=== PATIENT | male | born 1975 | race Caucasian/White ===

== ENCOUNTER 2017-02-01 18:58 | Emergency (ER) | payer MEDICAID ==
[2017-02-01] MEDS ORDERED: Ondansetron 4 MG/2 ML SDV IVPUSH ONE (19:57)
[2017-02-01] MEDS ORDERED: HYDROmorphone 1 MG/ML Syringe IVPUSH ONE ×2 (19:57→21:37)
[2017-02-01] MEDS ORDERED: Lactated Ringers 1,000 ML IV SCH (20:00)
[2017-02-01] MEDS ORDERED: LORazepam 2 MG/ML MDV IVPUSH ONE (21:37)
--- NOTE | 2017-02-01 21:48 | EDM.PDOC ---
ED HPI GENERAL MEDICAL PROBLEM - General Chief Complaint: Abdominal Pain Stated Complaint: [facility] Time Seen by Provider: 02/01/17 19:42 Source of Information: Reports: Patient, Family (S.O and neighbor) History Limitations: Reports: No limitations - History of Present Illness INITIAL COMMENTS - FREE TEXT/NARRATIVE: Abdominal pain: This is a 41-year-old male presents emergency room via EMS. He has a complex medical history relating to acute and chronic abdominal pain. which became acute at 4 PM today after eating chicken. He reports the abdomen is very tender and crampy, having vomiting and dry heaves. Reports last bowel movement last night. he does have a feeding tube in place which he has not used for one week, reports eating enough food. Upon review of chart, it is noted he has a 5.8 pound weight loss since October 2016. His appearance is very thin and bony. 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) (He has an extensive med list) Left Lower Abdomen Pain Score (Numeric/FACES): 9 - Related Data Allergies Allergy/AdvReac Type Severity Reaction Status Date / Time adhesive tape Allergy Rash Verified 02/01/17 19:20 Home Meds: Home Meds Albuterol [Ventolin HFA] 2 puff PO Q4HR PRN 04/07/16 [History] Acetaminophen [Tylenol] 650 mg PO Q6H PRN #1 bottle 04/19/16 [Rx] Ondansetron [Zofran ODT] 4 mg PO Q6H PRN #30 tab.dis 04/19/16 [Rx] Vitamin B Complex [B Complex] 1 tab PO DAILY 05/13/16 [History] Omeprazole 40 mg PO BID 06/12/16 [History] Tamsulosin [Flomax] 0.4 mg PO BEDTIME 06/12/16 [History] Cyanocobalamin (Vitamin B12) [Vitamin B12] 1,000 mcg SL DAILY 09/07/16 [History] Diclofenac Potassium [Cataflam] 50 mg PO TID 09/07/16 [History] traMADol [Ultram] 50 mg PO Q6H PRN 09/07/16 [History] Multivitamins with Iron [Chewable-Loki with Iron] 1 each PO DAILY 11/07/16 [ History] Acarbose 50 mg PO TID 11/08/16 [History] Polyethylene Glycol 3350 [MiraLAX] 17 gm PO DAILY 11/08/16 [History] Docusate Sodium [Colace 50 MG/5 ML Liquid] 100 mg PEGTUBE BID 30 Days 11/10/16 [ Rx] Hyoscyamine [Levsin] 0.125 mg PO Q6HR PRN 11/17/16 [History] LORazepam 1 mg GTUBE ASDIRECTED 11/17/16 [History] Nicotine Polacrilex [Nicotine Gum] 4 mg PO ASDIRECTED PRN 11/17/16 [History] oxyCODONE HCl/Acetaminophen [oxyCODONE-Acetaminophen 5-325] 1 tab PO Q6H PRN [History] Amino Acids/Protein Hydrolys [Pro-Stat AWC] 15 ml PO BID 11/18/16 [History] Bacitracin [Bacitracin Oint] 1 applic TOP Q4H PRN 11/18/16 [History] Bisacodyl [Biscolax] 1 applic RC .Q2-4D PRN 11/18/16 [History] Calcium Citrate/Vitamin D3 [Calcium Citrate - Vit D3 Tab] 2 tab PO BID 11/18/16 [History] Diclofenac Sodium [Voltaren 1% Gel] 4 gr TOP BID 11/18/16 [History] Diphenoxylate HCl/Atropine [Lomotil] 1 tab PO Q6H PRN 11/18/16 [History] Magnesium Hydroxide [Milk of Magnesia] 1 oz PO Q48H PRN 11/18/16 [History] Nystatin [Nystatin Crm] 1 applic TOP TID PRN 11/18/16 [History] traMADol HCl [Tramadol HCl] 50 mg PO Q6H PRN 11/18/16 [History] traMADol HCl [Tramadol HCl] 100 mg PO Q6H PRN 11/18/16 [History] Acetaminophen/oxyCODONE [Percocet 325-5 MG] 1 - 2 tab PO Q4H PRN #50 tablet [Rx] Docusate Sodium [Colace] 100 mg PO BID cap 11/22/16 [Rx] Pantoprazole [ProTONIX] 40 mg PO Q24H tab.cr 11/22/16 [Rx] Past Medical History HEENT History: Reports: Impaired vision Other HEENT History: Dental caries; wears glasses Respiratory History: Reports: Asthma, Bronchitis, recurrent, Sleep apnea Gastrointestinal History: Reports: Chronic diarrhea, Gastritis, GERD, Hiatal hernia Genitourinary History: Reports: Renal calculus Musculoskeletal History: Reports: Arthritis, Back pain, chronic, Fracture, Fibromyalgia Neurological History: Reports: Brain injury, Concussion, Head trauma, Migraines , Vertigo Psychiatric History: Reports: ADHD, Anxiety, Depression, Mood swings, Panic attack, Suicide attempt, Suicidal ideation Endocrine/Metabolic History: Reports: Vitamin D deficiency, Other (see below) Other Endocrine/Metabolic History: hypoglycemic Hematologic History: Reports: B12 deficiency, Iron deficiency Dermatologic History: Reports: Other (see below) Other Dermatologic History: small sore on both legs - Infectious Disease History Infectious Disease History: Reports: Chicken pox - Past Surgical History Head Surgeries/Procedures: Reports: None HEENT Surgical History: Reports: Eye surgery Respiratory Surgical History: Reports: None GI Surgical History: Reports: Bariatric procedure, Esophageal dilatation, David fundoplication, Other (see below) Other GI Surgeries/Procedures: Repair of david recent. gastrectomy april 2016. G-tube placed September 2016 Abdomenal surgery in Oct or 2016 Male Surgical History: Reports: None Endocrine Surgical History: Reports: None Neurological Surgical History: Reports: None Musculoskeletal Surgical History: Reports: Knee replacement Other Musculoskeletal Surgeries/Procedures:: right knee replacement 07/2015 Dermatological Surgical History: Reports: None Social & Family History - Family History Respiratory: Reports: Asthma : Reports: Renal disease/insufficiency Musculoskeletal: Reports: Arthritis Neurological: Reports: Other (see below) Other Neurological Family History: MS Endocrine/Metabolic: Reports: Diabetes, type I Oncologic: Reports: Colon, Lung, Metastatic Other Oncologic Family History: Throat - Tobacco Use Smoking Status *Q: Current Every Day Smoker Years of Tobacco use: 15 Packs/Tins Daily: 0.5 Used Tobacco, but Quit: No Month Tobacco Last Used: 11/08 Second Hand Smoke Exposure: Yes - Caffeine Use Caffeine Use: Reports: Coffee Other Caffeine Use: 2 cups day - Alcohol Use Days Per Week of Alcohol Use: 0 - Recreational Drug Use Recreational Drug Use: No - Living Situation & Occupation Living situation: Reports: with significant other (Lives in [facility],, [address] Occupation: employed ED ROS GENERAL - Review of Systems Review Of Systems: See Below Constitutional: Reports: other (Appears to be in significant pain, active vomiting noted) HEENT: Reports: No symptoms Respiratory: Reports: No Symptoms Cardiovascular: Reports: No symptoms Endocrine: Reports: no symptoms GI/Abdominal: Reports: Abdominal pain, Decreased appetite, Nausea, Vomiting, Other (Feeding tube in place) : Reports: no symptoms Musculoskeletal: Reports: back pain Skin: Reports: no symptoms Neurological: Reports: No Symptoms Psychiatric: Reports: Agitation, Anxiety Hematologic/Lymphatic: Reports: no symptoms Immunologic: Reports: no symptoms ED EXAM, GENERAL - Physical Exam Exam: See Below Exam Limited By: No limitations General Appearance: alert, WD/WN, anxious, moderate distress, thin, cachetic Ears: normal external exam, normal canal, hearing grossly normal, normal TMs Nose: normal inspection, normal mucosa, no blood Throat/Mouth: Normal inspection, Normal lips, Normal teeth, Normal gums, Normal oropharynx, Normal voice, No airway compromise Head: atraumatic, normocephalic, other (Face and head very thin and bony appearance) Neck: normal inspection, supple, non-tender Respiratory/Chest: no respiratory distress, lungs clear, normal breath sounds Cardiovascular: regular rate, rhythm, no edema GI/Abdominal: abnormal bowel sounds: (Hypoactive), other (Feeding tube noted and clamped without secondary infection) (Male) Exam: Deferred Rectal (Males) Exam: Deferred Back Exam: full range of motion Extremities: normal inspection, normal range of motion, non-tender, normal capillary refill, no pedal edema Neurological: alert, normal cognition, no motor/sensory deficits Psychiatric: anxious Skin Exam: Warm, Dry, Intact, Normal color, No rash, Pallor Lymphatic: no adenopathy Course - Vital Signs Last Recorded V/S: Last Vital Signs Temp 37 C 02/01/17 19:19 Pulse 65 02/01/17 19:19 Resp 16 02/01/17 19:19 BP 132/89 02/01/17 19:19 Pulse Ox 97 02/01/17 19:19 - Orders/Labs/Meds Orders: Active Orders 24 hr Category Date Time Status Abdomen Pelvis wo Cont [CT] Stat Exams 02/01/17 19:55 Taken Lactated Ringers [Ringers, Lactated] 1,000 ml Med 02/01/17 20:00 Active IV ASDIRECTED Medication Orders Lactated Ringer's (Ringers, Lactated) 1,000 mls @ 300 mls/hr IV ASDIRECTED MATIAS Last Admin: 02/01/17 21:06 Dose: 300 mls/hr Labs: Laboratory Tests 02/01/17 02/01/17 02/01/17 Range/Units 20:26 20:26 20:26 WBC 9.1 (4.5-11.0) K/uL RBC 4.22 L (4.30-5.90) M/uL Hgb 12.2 (12.0-15.0) g/dL Hct 36.9 L (40.0-54.0) % MCV 87 (80-98) fL MCH 29 (27-31) pg MCHC 33 (32-36) % Plt Count 388 (150-400) K/uL Neut % (Auto) 74 H (36-66) % Lymph % (Auto) 21 L (24-44) % Steele % (Auto) 4 (2-6) % Eos % (Auto) 1 L (2-4) % Baso % (Auto) 0 (0-1) % Sodium 145 (140-148) mmol/L Potassium 3.9 (3.6-5.2) mmol/L Chloride 106 (100-108) mmol/L Carbon Dioxide 28 (21-32) mmol/L Anion Gap 10.8 (5.0-14.0) mmol/L BUN 13 D (7-18) mg/dL Creatinine 0.8 (0.8-1.3) mg/dL Est Cr Clr Drug Dosing 84.26 mL/min Estimated GFR (MDRD) > 60 (>60) Glucose 143 H (74-106) mg/dL Lactic Acid 1.1 (0.4-2.0) mmol/L Calcium 8.6 (8.5-10.1) mg/dL Total Bilirubin 0.3 (0.2-1.0) mg/dL AST 18 (15-37) U/L ALT 24 (12-78) U/L Alkaline Phosphatase 85 D (46-116) U/L Total Protein 7.1 (6.4-8.2) g/dL Albumin 3.0 L (3.4-5.0) g/dL Globulin 4.1 H (2.3-3.5) g/dL Albumin/Globulin Ratio 0.7 L (1.2-2.2) Amylase 48 (25-115) U/L Lipase 73 (73-393) U/L Meds: Medications Generic Name Dose Route Start Last Admin Trade Name Freq PRN Reason Stop Dose Admin Lactated Ringer's 1,000 mls @ 300 mls/hr 02/01/17 20:00 02/01/17 21:06 Ringers, Lactated IV 300 mls/hr ASDIRECTED MATIAS Administration Discontinued Medications Generic Name Dose Route Start Last Admin Trade Name Freq PRN Reason Stop Dose Admin Hydromorphone HCl 1 mg 02/01/17 19:57 02/01/17 20:06 Dilaudid IVPUSH 02/01/17 19:58 1 mg ONETIME ONE Administration Hydromorphone HCl 1 mg 02/01/17 21:37 02/01/17 21:49 Dilaudid IVPUSH 02/01/17 21:38 1 mg ONETIME ONE Administration Lorazepam 1 mg 02/01/17 21:37 02/01/17 21:46 Ativan IVPUSH 02/01/17 21:38 1 mg ONETIME ONE Administration Ondansetron HCl 4 mg 02/01/17 19:57 02/01/17 20:05 Zofran IVPUSH 02/01/17 19:58 4 mg ONETIME ONE Administration - Re-Assessments/Exams Free Text/Narrative Re-Assessment/Exam: 02/01/17 21:52 Treated with IV lactated Ringer's, IV Zofran 4 mg, IV Dilaudid 1 mg repeated x2 , IV Ativan [address] without contrast no acute conditions noted Review of results with patient and his S. O. Consulted with Dr. Neftali Silvestre. He will be seen tomorrow in clinic for further evaluation. Patient declines any admission to hospital. Departure - Departure Time of Disposition: 22:54 Disposition: Home, Self-Care 01 Condition: fair Clinical Impression: Abdominal pain Qualifiers: Abdominal location: generalized Qualified Code(s): R10.84 - Generalized abdominal pain Instructions: Abdominal Pain, Adult, [id number] Referrals: Gideon Fam PA [Primary Care Provider] - Forms: ED Department Discharge Care Plan Goals: Abdominal pain with nausea vomiting -Continue medications as prescribed -Followup with surgery clinic tomorrow. -Return to ER if has worsening pain or symptoms or has any concerns. - Problem List & Annotations (1) Abdominal pain SNOMED Code(s): 03231563 Code(s): R10.9 - UNSPECIFIED ABDOMINAL PAIN Status: Acute Priority: High Current Visit: Yes Qualifiers: Abdominal location: generalized Qualified Code(s): R10.84 - Generalized abdominal pain - Problem List Review Problem List Initiated/Reviewed/Updated: Yes - My Orders Last 24 Hours: My Active Orders 02/01/17 19:55 Abdomen Pelvis wo Cont [CT] Stat 02/01/17 20:00 Lactated Ringers [Ringers, Lactated] 1,000 ml IV ASDIRECTED - Assessment/Plan Last 24 Hours: My Active Orders 02/01/17 19:55 Abdomen Pelvis wo Cont [CT] Stat 02/01/17 20:00 Lactated Ringers [Ringers, Lactated] 1,000 ml IV ASDIRECTED Plan: Abdominal pain with nausea vomiting -Continue medications as prescribed -Followup with surgery clinic tomorrow. -Return to ER if has worsening pain or symptoms or has any concerns
[2017-02-01 23:19] VITALS: BP 122/86
== END 2017-02-01 22:40 | disposition home or self-care (01) ==
LOC: JP.ED 18:58
DX: R10.84 Generalized abdominal pain (principal); F17.210 Nicotine dependence, cigarettes, uncomplicated; K21.9 Gastro-esophageal reflux disease without esophagitis; G89.29 Other chronic pain; M54.9 Dorsalgia, unspecified; E50.9 Vitamin A deficiency, unspecified; Z96.659 Presence of unspecified artificial knee joint; Z98.890 Other specified postprocedural states; J45.909 Unspecified asthma, uncomplicated; Z79.899 Other long term (current) drug therapy; Z91.048 Other nonmedicinal substance allergy status
CPT/HCPCS: 36415; 74176; 80053; 82150; 83605; 83690; 85025; 96361; 96374; 96375; 96376; 99284; J1170; J2060; J2405; J7120

== ENCOUNTER 2017-02-02 15:59 | Inpatient (IN) | payer MEDICAID ==
[2017-02-02] MEDS ORDERED: Ondansetron 4 MG/2 ML SDV IVPUSH PRN (17:20)
[2017-02-02] MEDS ORDERED: Naloxone 0.4 MG/ML SDV IV PRN (17:24)
[2017-02-02] MEDS ORDERED: HYDROmorphone/Normal Saline 15 MG/30 ML PCA IV PRN (17:30)
[2017-02-02] MEDS ORDERED: Pneumococcal Polyvalent-23 Vaccine 0.5 ML SDV IM ONE (17:43)
[2017-02-02] MEDS: Metoclopramide 10 MG/2 ML SDV IV SCH ×2 (18:51→23:52)
[2017-02-02] MEDS: Pantoprazole 40 MG Vial IVPUSH SCH (21:24)
[2017-02-02] MEDS ORDERED: Albuterol 8 GM Inhaler INH PRN (21:59)
[2017-02-02] MEDS ORDERED: Acetaminophen Soln 650 MG/20.3 ML UD Cup PO PRN (21:59)
[2017-02-02] MEDS ORDERED: LORazepam 1 MG Tab GTUBE SCH (22:00)
[2017-02-02] MEDS ORDERED: LORazepam 0.5 MG Tab GTUBE PRN (22:14)
[2017-02-03] MEDS: Dextrose 5%-Lactated Ringers 1,000 ML IV SCH ×2 (01:45→19:06)
[2017-02-03] MEDS: Metoclopramide 10 MG/2 ML SDV IV SCH ×4 (05:45→23:53)
--- NOTE | 2017-02-03 08:06 | PCM.HP ---
H&P History of Present Illness - General Date of Service: 02/02/17 Admit Problem/Dx: Admission Diagnosis/Problem Admission Diagnosis/Problem Small bowel obstruction Source of Information: Patient History Limitations: Reports: No limitations - History of Present Illness Initial Comments - Free Text/Narative: Pito states he was fine all day 02/01/17 until he ate chicken fingers his girlfriend made at home. He states he developed severe left mid abdominal pain that was associated with nausea. He went to the ED and had a CT Scan without contrast which was negative. He went to see Dr. Faria in the clinic 02/02/17 who transferred him down to the surgery department. Pito was seen in the surgery dept but he was dry heaving and couldn't sit up in the wheelchair reporting his pain a 10/10. He reported pain in his mid abdomen. Pito was taken to the ED Dept at [facility] and an Cristhian RN called stating that there wasn't anything they could do for him and refused to see him. Pito was directly admitted. Duration of Symptoms: Reports: Day(s): (2) Location: Reports: abdomen Quality: Reports: Pressure, Sharp, Stabbing Improves with: Reports: Medication Worsens with: Reports: None Context: Reports: sick contact Associated Symptoms: Reports: denies other symptoms Upper Abdomen Pain Score (Numeric/FACES): 10 - Related Data Allergies/Adverse Reactions: Allergies Allergy/AdvReac Type Severity Reaction Status Date / Time adhesive tape Allergy Rash Verified 02/01/17 19:20 Home Medications: Home Meds Albuterol [Ventolin HFA] 2 puff PO Q4HR PRN 04/07/16 [History] Acetaminophen [Tylenol] 650 mg PO Q6H PRN #1 bottle 04/19/16 [Rx] Ondansetron [Zofran ODT] 4 mg PO Q6H PRN #30 tab.dis 04/19/16 [Rx] Vitamin B Complex [B Complex] 1 tab PO DAILY 05/13/16 [History] Omeprazole 40 mg PO BID 06/12/16 [History] Tamsulosin [Flomax] 0.4 mg PO BEDTIME 06/12/16 [History] Cyanocobalamin (Vitamin B12) [Vitamin B12] 1,000 mcg SL DAILY 09/07/16 [History] Diclofenac Potassium [Cataflam] 50 mg PO TID 09/07/16 [History] traMADol [Ultram] 50 mg PO Q6H PRN 09/07/16 [History] Multivitamins with Iron [Chewable-Loki with Iron] 1 each PO DAILY 11/07/16 [ History] Acarbose 50 mg PO TID 11/08/16 [History] Polyethylene Glycol 3350 [MiraLAX] 17 gm PO DAILY 11/08/16 [History] Docusate Sodium [Colace 50 MG/5 ML Liquid] 100 mg PEGTUBE BID 30 Days 11/10/16 [ Rx] Hyoscyamine [Levsin] 0.125 mg PO Q6HR PRN 11/17/16 [History] LORazepam 1 mg GTUBE ASDIRECTED 11/17/16 [History] Nicotine Polacrilex [Nicotine Gum] 4 mg PO ASDIRECTED PRN 11/17/16 [History] oxyCODONE HCl/Acetaminophen [oxyCODONE-Acetaminophen 5-325] 1 tab PO Q6H PRN [History] Amino Acids/Protein Hydrolys [Pro-Stat AWC] 15 ml PO BID 11/18/16 [History] Bacitracin [Bacitracin Oint] 1 applic TOP Q4H PRN 11/18/16 [History] Bisacodyl [Biscolax] 1 applic RC .Q2-4D PRN 11/18/16 [History] Calcium Citrate/Vitamin D3 [Calcium Citrate - Vit D3 Tab] 2 tab PO BID 11/18/16 [History] Diclofenac Sodium [Voltaren 1% Gel] 4 gr TOP BID 11/18/16 [History] Diphenoxylate HCl/Atropine [Lomotil] 1 tab PO Q6H PRN 11/18/16 [History] Magnesium Hydroxide [Milk of Magnesia] 1 oz PO Q48H PRN 11/18/16 [History] Nystatin [Nystatin Crm] 1 applic TOP TID PRN 11/18/16 [History] traMADol HCl [Tramadol HCl] 50 mg PO Q6H PRN 11/18/16 [History] traMADol HCl [Tramadol HCl] 100 mg PO Q6H PRN 11/18/16 [History] Acetaminophen/oxyCODONE [Percocet 325-5 MG] 1 - 2 tab PO Q4H PRN #50 tablet [Rx] Docusate Sodium [Colace] 100 mg PO BID cap 11/22/16 [Rx] Pantoprazole [ProTONIX] 40 mg PO Q24H tab.cr 11/22/16 [Rx] Past Medical History HEENT History: Reports: Impaired vision Other HEENT History: Dental caries; wears glasses Respiratory History: Reports: Asthma, Bronchitis, recurrent, Sleep apnea Gastrointestinal History: Reports: Chronic diarrhea, Gastritis, GERD, Hiatal hernia Genitourinary History: Reports: Renal calculus Musculoskeletal History: Reports: Arthritis, Back pain, chronic, Fracture, Fibromyalgia Neurological History: Reports: Brain injury, Concussion, Head trauma, Migraines , Vertigo Psychiatric History: Reports: ADHD, Anxiety, Depression, Mood swings, Panic attack, Suicide attempt, Suicidal ideation Endocrine/Metabolic History: Reports: Vitamin D deficiency, Other (see below) Other Endocrine/Metabolic History: hypoglycemic Hematologic History: Reports: B12 deficiency, Iron deficiency Dermatologic History: Reports: Other (see below) Other Dermatologic History: small sore on both legs - Infectious Disease History Infectious Disease History: Reports: Shingles - Past Surgical History Head Surgeries/Procedures: Reports: None HEENT Surgical History: Reports: Eye surgery Respiratory Surgical History: Reports: None GI Surgical History: Reports: Bariatric procedure, Esophageal dilatation, David fundoplication, Other (see below) Other GI Surgeries/Procedures: Repair of david recent. gastrectomy april 2016. G-tube placed September 2016 Abdomenal surgery in Oct or 2016 Male Surgical History: Reports: None Endocrine Surgical History: Reports: None Neurological Surgical History: Reports: None Musculoskeletal Surgical History: Reports: Knee replacement Other Musculoskeletal Surgeries/Procedures:: right knee replacement 07/2015 Dermatological Surgical History: Reports: None Social & Family History - Family History Respiratory: Reports: Asthma : Reports: Renal disease/insufficiency Musculoskeletal: Reports: Arthritis Neurological: Reports: Other (see below) Other Neurological Family History: MS Endocrine/Metabolic: Reports: Diabetes, type I Oncologic: Reports: Colon, Lung, Metastatic Other Oncologic Family History: Throat - Tobacco Use Smoking Status *Q: Current Some Day Smoker Years of Tobacco use: 25 Packs/Tins Daily: 0.5 Used Tobacco, but Quit: No Month Tobacco Last Used: 11/08 Second Hand Smoke Exposure: Yes - Caffeine Use Caffeine Use: Reports: Coffee Other Caffeine Use: 2 cups day - Alcohol Use Days Per Week of Alcohol Use: 0 - Recreational Drug Use Recreational Drug Use: No - Living Situation & Occupation Living situation: Reports: with significant other (Lives in [facility],, [facility] Occupation: employed H&P Review of Systems - Review of Systems: Review Of Systems: See Below General: Reports: weakness, fatigue, diaphoresis, decreased appetite HEENT: Reports: no symptoms Pulmonary: Reports: No Symptoms Cardiovascular: Reports: no symptoms Gastrointestinal: Reports: Abdominal pain (Gastrostomy tube in place\), Nausea Genitourinary: Reports: no symptoms Musculoskeletal: Reports: no symptoms Skin: Reports: no symptoms Psychiatric: Reports: anxiety Neurological: Reports: No Symptoms Hematologic/Lymphatic: Reports: no symptoms Immunologic: Reports: no symptoms Exam - Exam Exam: See Below - Vital Signs Vital Signs: Last Vital Signs Temp 96.4 F 02/03/17 07:00 Pulse 78 02/03/17 07:00 Resp 18 02/03/17 07:00 BP 79/52 L 02/03/17 07:00 Pulse Ox 93 L 02/03/17 07:00 Weight: 103 lb 1.6 oz - Exam General: severe distress HEENT: PERRLA Neck: supple, trachea midline Lungs: Clear to auscultation, Normal respiratory effort Cardiovascular: regular rate, regular rhythm Abdomen: tenderness (in left mid quadrant) (Male) Exam: Deferred Rectal (Males) Exam: Deferred Back Exam: normal inspection, full range of motion Extremities: normal inspection Skin: warm Neurological: cranial nerves intact, reflexes equal bilateral Neuro Extensive - Mental Status: other (in acute pain) Neuro Extensive - Motor, Sensory, Reflexes: CN II-XII intact, normal gait Psychiatric: anxious - Patient Data Lab Results last 24 hrs: Laboratory Results - last 24 hr 02/02/17 02/02/17 02/02/17 Range/Units 17:16 17:16 17:16 WBC 9.4 (4.5-11.0) K/uL RBC 5.10 (4.30-5.90) M/uL Hgb 14.6 D (12.0-15.0) g/dL Hct 43.6 (40.0-54.0) % MCV 86 (80-98) fL MCH 29 (27-31) pg MCHC 34 (32-36) % Plt Count 438 H (150-400) K/uL Sodium 144 (140-148) mmol/L Potassium 4.0 (3.6-5.2) mmol/L Chloride 105 (100-108) mmol/L Carbon Dioxide 28 (21-32) mmol/L Anion Gap 11.4 (5.0-14.0) mmol/L BUN 13 (7-18) mg/dL Creatinine 0.7 L (0.8-1.3) mg/dL Est Cr Clr Drug Dosing TNP Estimated GFR (MDRD) > 60 (>60) Glucose 113 H (74-106) mg/dL Calcium 9.1 (8.5-10.1) mg/dL Phosphorus 3.6 (2.5-4.9) mg/dL Magnesium 1.7 L (1.8-2.4) mg/dL Total Bilirubin 0.6 D (0.2-1.0) mg/dL AST 14 L (15-37) U/L ALT 21 (12-78) U/L Alkaline Phosphatase 88 (46-116) U/L Total Protein 7.6 (6.4-8.2) g/dL Albumin 3.0 L (3.4-5.0) g/dL Globulin 4.6 H (2.3-3.5) g/dL Albumin/Globulin Ratio 0.7 L (1.2-2.2) Result Diagrams: 02/02/17 17:16 02/02/17 17:16 *Q Meaningful Use (ADM) - VTE *Q VTE Criteria *Q: - Stroke *Q Stroke Criteria *Q: - AMI *Q AMI Criteria *Q: Problem List Initiated/Reviewed/Updated: Yes Orders Last 24hrs: Active Orders 24 hr Category Date Time Status Admission Status [Patient Status] [ADT] Routine ADT 02/02/17 17:00 Active Feeding Tube Managment [Enteral Feedings] [RC] Click to Care 02/02/17 17:33 Active Edit Intake and Output [RC] QSHIFT Care 02/02/17 17:14 Active Up ad Patrizia [RC] ASDIRECTED Care 02/02/17 17:14 Active Vital Signs [RC] Q4H Care 02/02/17 17:14 Active Clear Liquid Diet [DIET] Diet 02/03/17 Breakfast Active Abdomen 2V AP Flat Upright [CR] Routine Exams 02/02/17 17:18 Taken Abdomen 2V AP Flat Upright [CR] Routine Exams 02/03/17 04:00 Taken Acarbose [Precose] Med 02/03/17 09:00 Active 50 mg PO TID Acetaminophen [Tylenol] Med 02/02/17 21:59 Active 650 mg PO Q6H PRN Albuterol [Ventolin HFA] Med 02/02/17 21:59 Active 0 gm INH Q4H PRN Dextrose 5%-Lactated Ringers 1,000 ml Med 02/02/17 17:30 Active IV ASDIRECTED Diclofenac Potassium [Cataflam] Med 02/03/17 09:00 Active 50 mg PO TID HYDROmorphone/Normal Saline [Dilaudid [employer] 15 MG in NS Med 02/02/17 18:06 Active 30 ML] 15 mg IV ASDIRECTED PRN LORazepam [Ativan] Med 02/02/17 22:14 Active 1 mg GTUBE Q4H PRN MVI, Adult with Vitamin K [Infuvite Adult] 10 ml Med 02/03/17 09:30 Active Thiamine [Vitamin B-1] 100 mg Magnesium Sulfate [Magnesium Sulfate 50%] 2 gm Folic Acid 1 mg Lactated Ringers [Ringers, Lactated] 1,000 ml IV ONETIME Magnesium Sulfate/Water [Magnesium Sulfate 2 GM in Med 02/03/17 06:30 Active Water 50 ML] 2 gm Premix Bag 1 bag IV Q6H Metoclopramide [Reglan] Med 02/03/17 12:00 Active 10 mg IV Q6H Naloxone [Narcan] Med 02/02/17 17:24 Active 0.1 mg IV ASDIRECTED PRN Ondansetron [Zofran] Med 02/02/17 17:20 Active 4 mg IVPUSH Q4H PRN Pantoprazole [ProTONIX IV] Med 02/02/17 21:00 Active 40 mg IVPUSH BEDTIME Tamsulosin [Flomax] Med 02/03/17 21:00 Active 0.4 mg PO BEDTIME SCD [Sequential Compression Device] [OM.PC] Routine Oth 02/02/17 17:15 Ordered Medication Orders Acarbose (Precose) 50 mg PO TID MATIAS Acetaminophen (Tylenol) 650 mg PO Q6H PRN PRN Reason: pain or fever Albuterol (Ventolin Hfa) 0 gm INH Q4H PRN PRN Reason: Shortness of Breath Diclofenac Potassium (Cataflam) 50 mg PO TID [facility] Hydromorphone HCl (Dilaudid Overhead Worker 15 Mg In Ns 30 Ml) 15 mg IV ASDIRECTED PRN; Protocol PRN Reason: PAIN Dextrose/Lactated Ringer's (Dextrose 5%-Lactated Ringers) 1,000 mls @ 125 mls/ hr IV ASDIRECTED [facility] Last Admin: 02/03/17 01:45 Dose: 125 mls/hr Magnesium Sulfate 2 gm/ Premix 50 mls @ 25 mls/hr IV Q6H [facility] Stop: 02/06/17 02:29 Multivitamins/Minerals 10 ml/Thiamine HCl 100 mg/ Magnesium Sulfate 2 gm/ Folic Acid 1 mg / Lactated Ringer's 1,015.2 mls @ 200 mls/hr IV ONETIME ONE Stop: 02/03/17 14:34 Lorazepam (Ativan) 1 mg GTUBE Q4H PRN PRN Reason: Anxiety Metoclopramide HCl (Reglan) 10 mg IV Q6H MATIAS Naloxone HCl (Narcan) 0.1 mg IV ASDIRECTED PRN PRN Reason: decreased respiratory rate Ondansetron HCl (Zofran) 4 mg IVPUSH Q4H PRN PRN Reason: Nausea/Vomiting Last Admin: 02/02/17 17:36 Dose: 4 mg Pantoprazole Sodium (Protonix Iv) 40 mg IVPUSH BEDTIME [facility] Last Admin: 02/02/17 21:24 Dose: 40 mg Tamsulosin HCl (Flomax) 0.4 mg PO BEDTIME [facility] Assessment/Plan Comment:: Abdominal Pain Partial Small Bowel Pain Plan: Admit to [facility] See copy of orders Admit to Inpatient: Plan to be hospitalized 2 nights and 3 days Laurie Slaughter
[2017-02-03] MEDS ORDERED: Iohexol 300 MG/ML 30 ML Bottle PO ONE (08:07)
[2017-02-03] MEDS ORDERED: Iopamidol 612 MG/ML 100 ML Bottle IV PRN (08:36)
[2017-02-03] MEDS ORDERED: Sodium Chloride 0.9% 10 ML Syringe FLUSH PRN (08:36)
[2017-02-03] MEDS ORDERED: Sodium Chloride 0.9% 10 ML SDV FLUSH ONE (08:36)
[2017-02-03] MEDS: Magnesium Sulfate/Water 2 GM in Premix Bag 1 BAG IV SCH ×4 (08:41→23:57)
[2017-02-03] MEDS ORDERED: Sodium Chloride 0.9% 100 ML IV SCH (08:45)
--- NOTE | 2017-02-03 08:59 | PN ---
DATE OF SERVICE: 02/03/2017 SUBJECTIVE: Pito is a 41-year-old male who was admitted yesterday with severe abdominal pain. This morning, he reports his pain is better. 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 He has been on clear liquids only. He reports the pain is better, it was in the left midquadrant. No other associated signs and symptoms with the exception of nausea. OBJECTIVE: GENERAL: Pito Segura is a 41-year-old male. VITAL SIGNS: TPR is 96.4, 78, 18, blood pressure 79/52. HEENT: Negative. NECK: Supple. HEART: Regular rate and rhythm. LUNGS: Clear. ABDOMEN: Midline incision looks good. There is a small hernia noted in the incision, nonacute. Gastrostomy tube is in place. EXTREMITIES: Without peripheral edema. ASSESSMENT: Severe abdominal pain, nausea, gastrostomy tube feeding, status post partial gastrectomy, gastrostomy tube for abnormal weight loss, hypoglycemia after gastrointestinal surgery, malnutrition, vitamin B and D deficiency. PLAN: Check ferritin and B12 on blood already drawn. A CT of abdomen and pelvis with IV and oral contrast and use contrast in the gastrostomy tube, 100 mL, 1 L of LR with MultiVites. To call Neftali Silvestre MD, after the CT results are completed. Laurie Funes PA-C /[id number]
[2017-02-03] MEDS ORDERED: Iohexol 647 MG/ML 10 ML SDV ONE (09:26)
[2017-02-03] MEDS ORDERED: MVI, Adult with Vitamin K 10 ML, Thiamine 100 MG, Magnesium Sulfate 2 GM, Folic Acid 1 ... IV ONE ×5 (09:30)
--- NOTE | 2017-02-03 09:37 | CR ---
Abdomen 2V AP Flat Upright INDICATION: abdominal pain, ? SBO FINDINGS: Postoperative changes in the upper abdomen. Gastrostomy tube in place. Nonspecific bowel g as pattern. No evidence for small bowel obstruction or free air.
--- NOTE | 2017-02-03 09:38 | CR ---
Abdomen 2V AP Flat Upright INDICATION: abdominal pain FINDINGS: Comparison 02/02/2017. Postoperative changes in the upper abdomen. Gastrostomy tube in plac e. Nonspecific bowel gas pattern. No evidence for small bowel obstruction or free air.
--- NOTE | 2017-02-03 12:19 | CT ---
Abdomen Pelvis w Cont Total DLP 300 mGycm. INDICATION: small bowel obstruction COMPARISON: CT 02/01/2017 and 11/07/2016. FINDINGS: Swirling of the mesentery in the left upper abdomen best visualized on axial images 46-55 with prominence of the mesenteric vessels. Mild increase in free fluid in the right paracolic gutter and pelvis. Findings are suspicious for internal hernia. Postoperative changes Gala-en-Y gastric by pass and cholecystectomy. Bilateral renal cysts. Nephrolithiasis. Moderate bladder distention. Gastr ostomy tube in place. Exam otherwise unremarkable. IMPRESSION: Internal hernia in the left upper quadrant. Findings discussed with Dr. Silvestre in person at 12:15 PM on 02/03/2017.
[2017-02-03] MEDS: HYDROmorphone/Normal Saline 15 MG/30 ML PCA IV PRN (20:14)
[2017-02-03] MEDS: Pantoprazole 40 MG Vial IVPUSH SCH (21:00)
[2017-02-03] MEDS: Tamsulosin 0.4 MG Cap.ER PO SCH (21:00)
[2017-02-04] MEDS: Dextrose 5%-Lactated Ringers 1,000 ML IV SCH ×3 (04:30→19:36)
[2017-02-04] MEDS: Magnesium Sulfate/Water 2 GM in Premix Bag 1 BAG IV SCH ×4 (05:49→23:40)
[2017-02-04] MEDS: Metoclopramide 10 MG/2 ML SDV IV SCH ×2 (05:49→14:04)
[2017-02-04] MEDS ORDERED: Meropenem 500 MG SDV ONE (06:58)
[2017-02-04] MEDS ORDERED: Neostigmine Methylsulfate 1 MG/ML 5 ML Syringe ONE (07:25)
[2017-02-04] MEDS ORDERED: Rocuronium 50 MG/5 ML Vial ONE (07:25)
[2017-02-04] MEDS ORDERED: Succinylcholine/Normal Saline 200 MG/10 ML Syringe ONE (07:25)
[2017-02-04] MEDS ORDERED: Ondansetron 4 MG/2 ML SDV ONE (07:25)
[2017-02-04] MEDS ORDERED: fentaNYL 250 MCG/5 ML SDV ONE (07:25)
[2017-02-04] MEDS ORDERED: Propofol 200 MG/20 ML SDV ONE (07:25)
[2017-02-04] MEDS ORDERED: Dexamethasone 4 MG/ML SDV ONE (07:25)
[2017-02-04] MEDS: fentaNYL 25 MCG/HR Transdermal Patch TRDERM SCH (09:31)
[2017-02-04] MEDS ORDERED: cefOXitin 2 GM in Sodium Chloride 0.9% 50 ML IV ONE (10:00)
[2017-02-04] MEDS ORDERED: Lactated Ringers 1,000 ML ONE (11:05)
[2017-02-04] MEDS ORDERED: Sugammadex Sodium 200 MG/2 ML VIAL ONE (11:40)
[2017-02-04] MEDS ORDERED: Meperidine PF 100 MG/ML Syringe IM ONE (11:56)
[2017-02-04] MEDS ORDERED: hydrOXYzine HCl 50 MG/ML SDV IM ONE (12:15)
[2017-02-04] MEDS ORDERED: hydrOXYzine HCl 50 MG/ML SDV IM PRN (12:52)
[2017-02-04] MEDS ORDERED: hydrOXYzine HCl 25 MG Tab PO PRN (12:53)
[2017-02-04] MEDS ORDERED: Cyclobenzaprine 10 MG Tab PO PRN (12:53)
[2017-02-04] MEDS: cefOXitin 2 GM in Sodium Chloride 0.9% 50 ML IV SCH ×2 (16:16→22:07)
[2017-02-04] MEDS: Tamsulosin 0.4 MG Cap.ER PO SCH (20:25)
[2017-02-04] MEDS: Pantoprazole 40 MG Vial IVPUSH SCH (20:25)
[2017-02-05] MEDS: cefOXitin 2 GM in Sodium Chloride 0.9% 50 ML IV SCH (03:25)
[2017-02-05] MEDS: Magnesium Sulfate/Water 2 GM in Premix Bag 1 BAG IV SCH ×4 (05:32→22:50)
[2017-02-05] MEDS: Dextrose 5%-Lactated Ringers 1,000 ML IV SCH (07:23)
[2017-02-05] MEDS: FENTANYL PATCH CHECK TOP SCH (08:59)
[2017-02-05] MEDS ORDERED: Cyanocobalamin (Vitamin B12) 1,000 MCG/ML SDV IM ONE (09:00)
[2017-02-05] MEDS: HYDROmorphone/Normal Saline 15 MG/30 ML PCA IV PRN (11:27)
[2017-02-05] MEDS: Pantoprazole 40 MG Vial IVPUSH SCH (20:37)
[2017-02-05] MEDS: Tamsulosin 0.4 MG Cap.ER PO SCH (20:37)
[2017-02-05] MEDS ORDERED: Lidocaine 2% Jelly 10 ML Urojet MUCMEM ONE (22:35)
[2017-02-06] MEDS: Dextrose 5%-Lactated Ringers 1,000 ML IV SCH ×2 (00:33→11:37)
[2017-02-06] MEDS: Magnesium Sulfate/Water 2 GM in Premix Bag 1 BAG IV SCH ×4 (04:23→23:10)
[2017-02-06] MEDS ORDERED: Meropenem 500 MG SDV ONE (06:47)
[2017-02-06] MEDS ORDERED: Bupivacaine 0.5% 50 ML MDV ONE (06:47)
[2017-02-06] MEDS ORDERED: Lidocaine 1% with EPINEPHrine 1:100,000 50 ML MDV ONE (06:47)
[2017-02-06] MEDS ORDERED: Propofol 200 MG/20 ML SDV ONE (08:00)
[2017-02-06] MEDS ORDERED: fentaNYL 100 MCG/2 ML SDV ONE (08:00)
--- NOTE | 2017-02-06 08:24 | PN ---
DATE OF SERVICE: 02/06/2017 SUBJECTIVE: Pito is postop day 2 following an exploratory laparotomy. He is n.p.o. for a delayed primary closure today. His vital signs have been stable. He has been afebrile, up, ambulating, and pain has been controlled. REVIEW OF SYSTEMS: Remainder of review of systems negative for any pertinent positives and negatives. OBJECTIVE: GENERAL: Pito Segura is a 41-year-old male. He is alert and orientated, resting comfortably in bed. VITAL SIGNS: TPR is 98.2, 83, 15, blood pressure 103/60. HEENT: Negative. NECK: Supple. HEART: Regular rate and rhythm. LUNGS: Clear. ABDOMEN: Dressings dry and intact. Abdominal binder is on. EXTREMITIES: SCDs are on, and there is no peripheral edema. ASSESSMENT: 1. Exploratory laparotomy with resolution of small bowel volvulus and chronic mesenteric defect, small bowel stricturoplasty, and repair of incarcerated hernia and abnormal mobile cecum. Date of surgery is 02/04/2017. 2. Postop urinary retention requiring reinsertion of Chauhan catheter. PLAN: Orders to be written after delayed primary closure, and his Chauhan catheter will remain in until further orders, and he will continue to have a 24-hour gastrostomy tube feedings. Laurie Funes PA-C /[id number]
[2017-02-06] MEDS: FENTANYL PATCH CHECK TOP SCH (10:09)
[2017-02-06] MEDS: Acetaminophen/oxyCODONE 325-5 MG Tab PO PRN ×2 (11:47→19:48)
--- NOTE | 2017-02-06 12:22 | PN ---
DATE OF SERVICE: 02/05/2017 The patient has been afebrile with stable vital signs. He tolerated the tube feedings overnight, and we will continue these for a 24-hour period, as we are playing some catch-up nutritionally. Otherwise, urine output has been good. We will back down the IV rate and will plan to proceed with starting with some diet today. I think we will go to, more or less, a regular diet, as we have not done anything with his more proximal area around the gastrojejunostomy. Plan to proceed with a delayed primary closure tomorrow, and since his magnesium is slightly low, we will supplement that over the next 48 hours. We will check a BMP and phosphate, as the patient may have had some risk of refeeding-type syndrome. Neftali Silvestre MD /[id number]
[2017-02-06] MEDS: Tamsulosin 0.4 MG Cap.ER PO SCH (20:28)
[2017-02-06] MEDS ORDERED: Pantoprazole 40 MG Tab.CR PO SCH (21:00)
[2017-02-07] MEDS: Acetaminophen/oxyCODONE 325-5 MG Tab PO PRN ×3 (00:07→10:07)
[2017-02-07] MEDS: Dextrose 5%-Lactated Ringers 1,000 ML IV SCH (02:26)
[2017-02-07] MEDS: Magnesium Sulfate/Water 2 GM in Premix Bag 1 BAG IV SCH (03:10)
[2017-02-07] MEDS ORDERED: Sodium Chloride 0.9% 10 ML Syringe IV PRN (07:38)
[2017-02-07] MEDS ORDERED: Bisacodyl 5 MG Tab PO SCH (09:00)
[2017-02-07] MEDS ORDERED: Magnesium Citrate Solution 296 ML Bottle GTUBE ONE (09:00)
[2017-02-07] MEDS: FENTANYL PATCH CHECK TOP SCH (09:20)
[2017-02-07] MEDS: fentaNYL 25 MCG/HR Transdermal Patch TRDERM SCH (10:06)
--- NOTE | 2017-02-07 10:33 | OR ---
DATE OF PROCEDURE: 02/06/2017 PREOPERATIVE DIAGNOSIS: Open abdominal incision. POSTOPERATIVE DIAGNOSIS: Open abdominal incision. OPERATIVE PROCEDURE: Delayed primary closure of open abdominal incision. ANESTHESIA: Local plus IV sedation. INDICATION FOR PROCEDURE: A 41-year-old status post a bowel resection with partial obstruction related to volvulus this past Monday. At the time of the procedure, the skin and subcutaneous tissue were felt to be at high risk for a wound infection. Primary closure was undertaken. Given this, the incision was packed open for a planned delayed primary closure at this time. Potential risks including bleeding and infection were reviewed, and the patient wishes to proceed. DETAILS OF PROCEDURE: The patient was taken to the operating room and placed in a supine position. IV sedation was administered, after which the operative dressing was taken down. The wound inspected and found to be clean. The incision was then prepped and draped and anesthetized with 1% lidocaine mixed with Marcaine and irrigated with a meropenem-containing saline solution. A 10-Grenadian round Rubio-Escobedo drains were placed inferior to the incision and a long midline incision was then closed with 2 layers of 3-0 and 4-0 Vicryl stitch deep and gregg for the skin. The drain was fixed with 4-0 Vicryl stitch. The patient was taken to the recovery room in a satisfactory condition. There were no evident complications. Neftali Silvestre MD /[id number]
[2017-02-07 11:09] VITALS: BP 103/60
--- NOTE | 2017-02-07 14:28 | OR ---
PREOPERATIVE DIAGNOSIS: Partial small bowel obstruction. POSTOPERATIVE DIAGNOSES: 1. Small bowel volvulus requiring small bowel resection for reduction. 2. Separate area of small bowel stricture. 3. Incisional hernia. 4. Abnormally mobile cecum. OPERATIVE PROCEDURES: Exploratory laparotomy with: 1. Reduction of small bowel volvulus and closure of the internal hernia (85933). 2. Small bowel resection (59676). 3. Small bowel stricturoplasty (39296). 4. Repair of incisional hernia (16991). 5. Cecal pexy (06294). ANESTHESIA: General. INDICATIONS FOR PROCEDURE: This is a 41-year-old presenting with symptoms of postprandial abdominal pain suggestive of partial small bowel obstruction. A CT scan that did show some mesenteric swirling, although the significant side is not entirely certain. Given the patient's symptoms, plan is to proceed with an exploratory laparotomy. Potential risks including bleeding, infection, injury to underlying viscera, possible leaks from any GI tract closures that might be required, possible persistence or recurrence of the problem over time were all reviewed, and the patient wishes to proceed. DETAILS OF PROCEDURE: The patient was taken to the operating room and placed in a supine position. After general endotracheal anesthesia was induced, a Chauhan catheter was inserted, and the abdomen prepped and draped. A midline incision beginning somewhat below the umbilicus and then eventually extending to just below the xiphoid was made and carried down through the skin and subcutaneous tissue and into the peritoneal cavity. Some minor adhesions between the omentum and the previous recent midline incision were taken down. At that point, general exploration was undertaken. The patient was noted to once again have a volvulus between the transverse colon and the mesentery of the Gala limb. As one tried to reduce this, actually it was not reasonably reducible without division of the jejunojejunostomy, as that area was quite edematous and could not be mobilized through the defect. The small bowel consisting of the Gala limb as it became the common limb across the jejunojejunostomy was then divided with the MANOJ stapler, and this then allowed reduction of the volvulus after division of some of the mesentery at the end of the biliopancreatic limb, which had been somewhat foreshortened and adherent. The latter mesenteric division was required in order to reduce the biliary pancreatic limb satisfactorily. That area was then somewhat dusky and resected by means of a MANOJ stapler. At the point where the small bowel was detached from the biliary pancreatic limb, it was noted to be somewhat strictured at this point. level, bowel slipped back on to itself, and an opening made in the anti-mesenteric border and a single internal firing of the MANOJ stapler was accomplished with common opening being closed transversely. The angles of anastomosis were reinforced with some 3-0 Vicryl stitch. There was no mesenteric defect 20 cm distal to that point and the Gala-en-Y anatomy was reconstructed with a [id number] enteroenterostomy between the bowel at that level and the biliary pancreatic limb. This with an internal firing of the MANOJ 60-mm stapler. Common opening once again was closed transversely with same stapler. Angles of anastomosis were reinforced with 3-0 Vicryl stitch. The mesenteric defect there as well as the mesenteric defect posterior to the Gala limb mesentery both closed with a 2-0 silk running stitch. One additional finding was that of extremely multiple cecum during the course of the mobilization of the bowel so that the cecum could go from its normal location all the way over to the left mid and upper quadrant. This was felt to be putting the patient in risk for a cecal volvulus at some point and also highlighting the extreme mobility of his mesentery in general. A cecal pexy was then accomplished between the cecum and the right lateral abdominal wall with a series of 3-0 silk stitches. During entrance to the abdomen, the patient was noted to have a small incisional hernia. This was excised, and at that point, the abdomen was irrigated with antibiotic-containing saline solution. The omentum was elevated and pulled down underneath most of the incision, and at that point, the midline fascia approximated with #2 Vicryl stitch. This included closure of the incisional hernia, and the skin and subcutaneous tissue were felt to be at high risk for a wound infection, and primary closure was undertaken. Given this, the wound was packed open with iodoform gauze, and the patient taken to the recovery room in satisfactory condition. There were no other complications. Neftali Silvestre MD /[id number]
[2017-02-07] MEDS ORDERED: FENTANYL PATCH CHECK TOP SCH (21:00)
--- NOTE | 2017-02-09 09:22 | PN ---
DATE OF SERVICE: 02/07/2017 The patient has been afebrile with stable vital signs. The combination of the Percocet and fentanyl patch appear to be controlling the pain fairly well. He has not moved his bowels since the surgery. We will give him some Mag Citrate, along with Dulcolax oral tablets today. The plan at this point will be to discharge most likely tomorrow, beginning with nighttime tube feedings. I will ask Dietary to set up a meeting with the patient, the significant other, the dietitian, and the patient's [facility] worker to discuss the dietary regimen, will have him be on nighttime tube feedings, and he may be ready for discharge home in the next day or so. Neftali Silvestre MD /[id number]
--- NOTE | 2017-02-09 14:07 | DISCH ---
FINAL DIAGNOSES: 1. Small bowel obstruction secondary to small bowel volvulus. 2. Separate area of small bowel stricture. 3. Incisional hernia. 4. Abnormal . 5. Mild malnutrition. OPERATIVE PROCEDURE: 1. First procedure done on 02/04/2017; exploratory laparotomy with:. a. Reduction of small bowel volvulus with closure of internal hernia. b. Small bowel resection. c. Small bowel stricturoplasty. d. Repair of incisional hernia. e. Cecopexy. 2. Second procedure was done on 02/06/2017; delayed primary closure of abdominal incision. HOSPITAL COURSE: This is a 41-year-old presenting with symptoms suggestive of possible recurrent bowel obstruction. After admission and hydration, he was noted to have some degree of swirling of the mesentery on the CT scan, and subsequently was scheduled for open laparotomy, given the recent open laparotomy and expectant degree of adhesions. The patient did have a quite strikingly tight volvulus, which would require open incision nonetheless. The other procedures were as indicated. Postoperatively he has done well. He will be discharged home with some additional Percocet. He has a fentanyl patch 25 mcg a day, which was replaced on the date of discharge, that being 02/07/2017, with him having to remove that 4 days from now. Otherwise, he will be on his usual medical regimen. He will be doing nighttime tube feedings of Jevity 1.2, 40 mL/hr over a 12-hour period with flushes before and after. He does have a WENDI drain in place in his incision and will be following up with Laurie Funes at end of next week.
== END 2017-02-07 15:01 | disposition home or self-care (01) | DRG 331 ==
LOC: JP.ED 15:59 → JP.MS 16:00 → EDSTATUS 16:52
PROVIDERS: ADMIT Physician Assistant Medical; ATTEND Physician Assistant Medical
PROC: 0WQF0ZZ Repair Abdominal Wall, Open Approach (ICD-10-PCS; principal; 2017-02-04)
PROC: 0DB80ZZ Excision of Small Intestine, Open Approach (ICD-10-PCS; principal; 2017-02-04)
PROC: 0DSA0ZZ Reposition Jejunum, Open Approach (ICD-10-PCS; principal; 2017-02-04)
PROC: 0WQF0ZZ Repair Abdominal Wall, Open Approach (ICD-10-PCS; 2017-02-06)
DX: K56.2 Volvulus (principal); K56.60 Unspecified intestinal obstruction; K43.2 Incisional hernia without obstruction or gangrene; Z98.84 Bariatric surgery status; Z98.0 Intestinal bypass and anastomosis status; F17.210 Nicotine dependence, cigarettes, uncomplicated; K52.9 Noninfective gastroenteritis and colitis, unspecified; G43.909 Migraine, unspecified, not intractable, without status migrainosus; E55.9 Vitamin D deficiency, unspecified; E53.8 Deficiency of other specified B group vitamins; M79.7 Fibromyalgia; M54.9 Dorsalgia, unspecified; G89.29 Other chronic pain; M19.90 Unspecified osteoarthritis, unspecified site; K21.9 Gastro-esophageal reflux disease without esophagitis; G47.30 Sleep apnea, unspecified; H54.7 Unspecified visual loss; Z91.5 Personal history of self-harm; Z96.651 Presence of right artificial knee joint; Z91.048 Other nonmedicinal substance allergy status; E83.42 Hypomagnesemia; Z93.1 Gastrostomy status; R33.8 Other retention of urine
CPT/HCPCS: 36415; 51798; 74020; 74020-26; 74177; 74177-26; 80048; 80053; 82607; 82728; 83735; 84100; 85027; 88307; 94762; A9270-GY; C9113; J0694; J1100; J1170; J2175; J2185; J2405; J2704; J2765; J3010; J3410; J3411; J3420; J3475; J3490; J7030; J7042; J7050; J7120; Q9967

== ENCOUNTER 2017-03-28 12:50 | Emergency (ER) | payer MEDICAID ==
[2017-03-28 13:03] VITALS: BP 88/64
--- NOTE | 2017-03-28 13:56 | EDM.PDOC ---
ED HPI GENERAL MEDICAL PROBLEM - General Chief Complaint: Chest Pain Stated Complaint: CHEST PAINS ON NEW MEDICATION Time Seen by Provider: 03/28/17 13:25 Source of Information: Reports: Patient, Old Records History Limitations: Reports: No Limitations - History of Present Illness INITIAL COMMENTS - FREE TEXT/NARRATIVE: Substernal chest pain intermittent. No pain now. Called the clinic and was directed to the ER. Pain seems most correlated with swallowing of his Seroquel. No exertional chest pain. No black or bloody stools. No nausea or SOB. No personal hx of CAD. Has an uncle who developed heart dz in his mid 60's. Is a smoker. Onset: Other Onset Date: 03/14/17 Duration: Week(s):, Intermittent Location: Reports: Chest Quality: Reports: Burning Severity: Moderate Improves with: Reports: Other (time) Worsens with: Reports: Other (swallowing) Context: Reports: Other (hx of GERD) Associated Symptoms: Reports: Chest Pain Treatments WEATHERIZATION COORDINATOR: Reports: Other (see below) (None) - Related Data Allergies Allergy/AdvReac Type Severity Reaction Status Date / Time adhesive tape Allergy Rash Verified 02/01/17 19:20 Home Meds: Home Meds Albuterol [Ventolin HFA] 2 puff PO Q4HR PRN 04/07/16 [History] Ondansetron [Zofran ODT] 4 mg PO Q6H PRN #30 tab.dis 04/19/16 [Rx] Vitamin B Complex [B Complex] 1 tab PO DAILY 05/13/16 [History] Omeprazole 40 mg PO BID 06/12/16 [History] Tamsulosin [Flomax] 0.4 mg PO BEDTIME 06/12/16 [History] Cyanocobalamin (Vitamin B12) [Vitamin B12] 1,000 mcg SL DAILY 09/07/16 [History] Diclofenac Potassium [Cataflam] 50 mg PO TID 09/07/16 [History] traMADol [Ultram] 50 mg PO Q6H PRN 09/07/16 [History] Multivitamins with Iron [Chewable-Loki with Iron] 1 each PO DAILY 11/07/16 [ History] Acarbose 50 mg PO TID 11/08/16 [History] Polyethylene Glycol 3350 [MiraLAX] 17 gm PO DAILY 11/08/16 [History] Docusate Sodium [Colace 50 MG/5 ML Liquid] 100 mg PEGTUBE BID 30 Days 11/10/16 [ Rx] LORazepam 1 mg GTUBE ASDIRECTED 11/17/16 [History] oxyCODONE HCl/Acetaminophen [oxyCODONE-Acetaminophen 5-325] 1 tab PO Q6H PRN [History] Amino Acids/Protein Hydrolys [Pro-Stat AWC] 15 ml PO BID 11/18/16 [History] Bacitracin [Bacitracin Oint] 1 applic TOP Q4H PRN 11/18/16 [History] Calcium Citrate/Vitamin D3 [Calcium Citrate - Vit D3 Tab] 2 tab PO BID 11/18/16 [History] Diclofenac Sodium [Voltaren 1% Gel] 4 gr TOP BID 11/18/16 [History] Diphenoxylate HCl/Atropine [Lomotil] 1 tab PO Q6H PRN 11/18/16 [History] traMADol HCl [Tramadol HCl] 50 mg PO Q6H PRN 11/18/16 [History] traMADol HCl [Tramadol HCl] 100 mg PO Q6H PRN 11/18/16 [History] Acetaminophen/oxyCODONE [Percocet 325-5 MG] 1 - 2 tab PO Q4H PRN #50 tablet [Rx] Docusate Sodium [Colace] 100 mg PO BID cap 11/22/16 [Rx] Pantoprazole [ProTONIX] 40 mg PO Q24H tab.cr 11/22/16 [Rx] Past Medical History HEENT History: Reports: Impaired Vision Other HEENT History: Dental caries; wears glasses Respiratory History: Reports: Asthma, Bronchitis, Recurrent, Sleep Apnea Gastrointestinal History: Reports: Chronic Diarrhea, Gastritis, GERD, Hiatal Hernia Genitourinary History: Reports: Renal Calculus Musculoskeletal History: Reports: Arthritis, Back Pain, Chronic, Fracture, Fibromyalgia Neurological History: Reports: Brain Injury, Concussion, Head Trauma, Migraines , Vertigo Psychiatric History: Reports: ADHD, Anxiety, Depression, Mood Swings, Panic Attack, Suicide Attempt, Suicidal Ideation Endocrine/Metabolic History: Reports: Vitamin D Deficiency, Other (See Below) Other Endocrine/Metabolic History: hypoglycemic Hematologic History: Reports: B12 Deficiency, Iron Deficiency Dermatologic History: Reports: Other (See Below) Other Dermatologic History: small sore on both legs - Infectious Disease History Infectious Disease History: Reports: Shingles - Past Surgical History Head Surgeries/Procedures: Reports: None HEENT Surgical History: Reports: Eye Surgery GI Surgical History: Reports: Bariatric Procedure, Esophageal Dilatation, David Fundoplication, Other (See Below) Musculoskeletal Surgical History: Reports: Knee Replacement Social & Family History - Family History Respiratory: Reports: Asthma : Reports: Renal Disease/Insufficiency Musculoskeletal: Reports: Arthritis Neurological: Reports: Other (See Below) Other Neurological Family History: MS Endocrine/Metabolic: Reports: Diabetes, Type I Oncologic: Reports: Colon, Lung, Metastatic Other Oncologic Family History: Throat - Tobacco Use Smoking Status *Q: Unknown Ever Smoked Years of Tobacco use: 25 Packs/Tins Daily: 0.5 Used Tobacco, but Quit: No Month Tobacco Last Used: 11/08 Second Hand Smoke Exposure: Yes - Caffeine Use Caffeine Use: Reports: Coffee, Soda Other Caffeine Use: 2 cups day - Alcohol Use Days Per Week of Alcohol Use: 0 - Recreational Drug Use Recreational Drug Use: No - Living Situation & Occupation Living situation: Reports: with Significant Other Occupation: Employed ED ROS GENERAL - Review of Systems Review Of Systems: See Below Constitutional: Reports: No Symptoms HEENT: Reports: No Symptoms Respiratory: Reports: No Symptoms Cardiovascular: Reports: Chest Pain Endocrine: Reports: No Symptoms GI/Abdominal: Denies: Black Stool, Bloody Stool, Constipation, Diarrhea, Decreased Appetite, Distension, Flatus, Hematemesis, Hematochezia, Melena, Nausea, Stool Incontinence, Vomiting : Reports: No Symptoms Musculoskeletal: Reports: No Symptoms Skin: Reports: No Symptoms Neurological: Reports: No Symptoms ED EXAM, GENERAL - Physical Exam Exam: See Below Exam Limited By: No Limitations General Appearance: Alert, No Apparent Distress, Thin Eye Exam: Bilateral Eye: Normal Inspection, PERRL Ears: Normal External Exam Ear Exam: Bilateral Ear: Auricle Normal, Canal Normal Nose: Normal Inspection, Normal Mucosa, No Blood Throat/Mouth: Normal Inspection, Normal Lips, Normal Teeth, Normal Oropharynx, Normal Voice, No Airway Compromise Head: Atraumatic, Normocephalic Neck: Normal Inspection, Supple, Non-Tender Respiratory/Chest: No Respiratory Distress, Lungs Clear, Normal Breath Sounds, No Accessory Muscle Use Cardiovascular: Regular Rate, Rhythm, No Edema GI/Abdominal: Normal Bowel Sounds, No Distention, Tender (epigastrium), Other ( surgical scar and drain present.). No: Guarding, Rigid Back Exam: Normal Inspection Extremities: Normal Inspection, Normal Range of Motion, Non-Tender, No Pedal Edema Neurological: Alert, Oriented, CN II-XII Intact, Normal Cognition, No Motor/ Sensory Deficits Psychiatric: Normal Affect, Normal Mood Skin Exam: Warm, Dry, Intact, Normal Color, No Rash Lymphatic: No Adenopathy EKG INTERPRETATION EKG Date: 03/28/17 Time: 13:20 Rhythm: NSR Rate (beats/min): 76 [place]: normal P-wave: present QRS: normal ST-T: normal QT: normal Comparison: NA - no prior EKG Course - Vital Signs Text/Narrative:: ambulated in the ED and no return of CP occurred. Last Recorded V/S: Last Vital Signs Temp 36.2 C 03/28/17 13:32 Pulse 92 03/28/17 13:32 Resp 16 03/28/17 13:32 BP 88/64 L 03/28/17 13:32 Pulse Ox 99 03/28/17 13:32 - Orders/Labs/Meds Orders: Active Orders 24 hr Category Date Time Status EKG Documentation Completion [RC] ASDIRECTED Care 03/28/17 12:54 Active EKG 12 Lead [EK] Routine Ther 03/28/17 12:53 Ordered Departure - Departure Time of Disposition: 13:59 Disposition: Home, Self-Care 01 Condition: good Clinical Impression: GERD (gastroesophageal reflux disease) Qualifiers: Esophagitis presence: with esophagitis Qualified Code(s): K21.0 - Gastro- esophageal reflux disease with esophagitis Forms: ED Department Discharge - My Orders Last 24 Hours: My Active Orders 03/28/17 12:53 EKG 12 Lead [EK] Routine 03/28/17 12:54 EKG Documentation Completion [RC] ASDIRECTED - Assessment/Plan Last 24 Hours: My Active Orders 03/28/17 12:53 EKG 12 Lead [EK] Routine 03/28/17 12:54 EKG Documentation Completion [RC] ASDIRECTED
== END 2017-03-28 14:00 | disposition home or self-care (01) ==
LOC: JP.ED 12:50
DX: K21.0 Gastro-esophageal reflux disease with esophagitis (principal); J45.909 Unspecified asthma, uncomplicated; M19.90 Unspecified osteoarthritis, unspecified site; D41.9 Neoplasm of uncertain behavior of unspecified urinary organ; G43.909 Migraine, unspecified, not intractable, without status migrainosus; F32.9 Major depressive disorder, single episode, unspecified; Z91.09 Other allergy status, other than to drugs and biological substances; Z79.899 Other long term (current) drug therapy; Z98.890 Other specified postprocedural states
CPT/HCPCS: 93005; 99285-25

== ENCOUNTER 2017-09-21 08:45 | Inpatient (IN) | payer MEDICAID ==
[~2017-09-21 08:45] MED LIST: Acetaminophen 500 MG Tab PO ONE; Bupivacaine 0.5%/EPINEPHrine 1:200,000 50 ML MDV ONE; Celecoxib 200 MG Cap PO ONE
[2017-09-21] MEDS ORDERED: Neostigmine Methylsulfate 1 MG/ML 5 ML Syringe ONE (09:24)
[2017-09-21] MEDS ORDERED: Succinylcholine 200 MG/10 ML MDV ONE (09:24)
[2017-09-21] MEDS ORDERED: Dexamethasone 4 MG/ML SDV ONE (09:24)
[2017-09-21] MEDS ORDERED: Rocuronium 50 MG/5 ML Vial ONE (09:24)
[2017-09-21] MEDS ORDERED: Propofol 200 MG/20 ML SDV ONE (09:24)
[2017-09-21] MEDS ORDERED: Glycopyrrolate 0.2 MG/ML 5 ML MDV ONE (09:24)
[2017-09-21] MEDS ORDERED: Ondansetron 4 MG/2 ML SDV ONE (09:24)
[2017-09-21] MEDS ORDERED: Dextrose 5%-Lactated Ringers 1,000 ML IV SCH (09:30)
[2017-09-21] MEDS ORDERED: Lidocaine 0.4%/D5W 2 GM/500 ML BAG IV SCH (10:00)
[2017-09-21] MEDS ORDERED: Ketamine 500 MG/5 ML MDV IV SCH (10:00)
[2017-09-21] MEDS ORDERED: Lidocaine 2% 100 MG/5 ML Syringe IVPUSH SCH (10:00)
[2017-09-21] MEDS ORDERED: ceFAZolin 2 GM in Sodium Chloride 0.9% 50 ML IV ONE (10:00)
[2017-09-21] MEDS ORDERED: Ropivacaine 26 ML, Dexamethasone 8 MG, EPINEPHrine 0.4 MG, Sodium Chloride 0.9% 51.6 ML NERVRT SCH ×4 (10:00)
[2017-09-21] MEDS ORDERED: Albuterol/Ipratropium 3.0-0.5 MG/3 ML Neb Soln NEB ONE (10:00)
[2017-09-21] MEDS ORDERED: Lactated Ringers 1,000 ML ONE (10:49)
[2017-09-21] MEDS ORDERED: Meropenem 500 MG SDV ONE (11:33)
[2017-09-21] MEDS ORDERED: Naloxone 0.4 MG/ML SDV IVPUSH PRN (12:18)
[2017-09-21] MEDS ORDERED: HYDROmorphone/Normal Saline 15 MG/30 ML PCA IV PRN (12:18)
[2017-09-21] MEDS ORDERED: Ketorolac 60 MG/2 ML SDV IM ONE (12:30)
[2017-09-21] MEDS ORDERED: Naloxone 0.4 MG/ML SDV IV PRN (12:35)
[2017-09-21] MEDS ORDERED: Ondansetron 4 MG/2 ML SDV IV PRN (13:53)
[2017-09-21] MEDS ORDERED: Albuterol/Ipratropium 3.0-0.5 MG/3 ML Neb Soln INH PRN (13:55)
[2017-09-21] MEDS ORDERED: hydrOXYzine HCl 25 MG Tab PO PRN (14:03)
[2017-09-21] MEDS ORDERED: hydrOXYzine HCl 100 MG/2 ML SDV IM PRN (14:03)
[2017-09-21] MEDS ORDERED: Pantoprazole 40 MG Tab.CR PO SCH (16:30)
[2017-09-21] MEDS: Acetaminophen 325 MG Tab PO SCH ×2 (16:53→22:34)
[2017-09-21] MEDS: Albuterol/Ipratropium 3.0-0.5 MG/3 ML Neb Soln INH SCH ×2 (16:53→20:47)
[2017-09-21] MEDS: ceFAZolin 2 GM in Premix Bag 1 BAG IV SCH (17:32)
[2017-09-21] MEDS ORDERED: Tamsulosin 0.4 MG Cap.ER PO SCH (21:00)
[2017-09-21] MEDS ORDERED: QUEtiapine 100 MG Tab PO SCH (21:00)
[2017-09-21] MEDS ORDERED: Gabapentin 300 MG Cap PO SCH (21:00)
[2017-09-21] MEDS: Dextrose 5%-Lactated Ringers 1,000 ML IV SCH (21:23)
[2017-09-22] MEDS: ceFAZolin 2 GM in Premix Bag 1 BAG IV SCH (02:31)
[2017-09-22] MEDS: Dextrose 5%-Lactated Ringers 1,000 ML IV SCH (04:15)
[2017-09-22] MEDS: Acetaminophen 325 MG Tab PO SCH (04:23)
[2017-09-22] MEDS ORDERED: Albuterol 8 GM Inhaler INH PRN (06:59)
[2017-09-22] MEDS ORDERED: Acetaminophen 325 MG Tab PO PRN (06:59)
[2017-09-22] MEDS ORDERED: Atropine/Diphenoxylate 0.025-2.5 MG Tab PO PRN (06:59)
[2017-09-22] MEDS ORDERED: Acetaminophen/oxyCODONE 325-5 MG Tab PO PRN (07:01)
[2017-09-22] MEDS: Albuterol/Ipratropium 3.0-0.5 MG/3 ML Neb Soln INH SCH (07:17)
[2017-09-22 07:37] VITALS: BP 117/69
--- NOTE | 2017-09-22 08:08 | DISCH ---
ADMISSION DIAGNOSES: Incarcerated incisional hernia, ventral hernia, status post partial gastrectomy, unspecified surgical malabsorption, B12 deficiency, reactive hypoglycemia, vitamin B deficiency, developmental language disorder, SP infection of right knee, traumatic brain injury, asthma. DISCHARGE DIAGNOSES: Diagnostic lap with lysis of adhesions, repair of incarcerated incisional hernia with mesh, repair of separate ventral hernia with mesh and take down gastrostomy for incarcerated incisional hernia, separate ventral hernia at the gastrostomy tube site status gastrostomy tube. Date 09/21/2017. HISTORY: Pito Segura is a 42-year-old male with above chief complaint. After preoperative evaluation and discussion of possible risks and possible complications, he wished to proceed with surgical procedure. HOSPITAL COURSE: Pito had surgery on 09/21/2017 and 09/22/2017. He was ready to be discharged to home. His activity was good. He could transfer himself to his wheelchair. He is unable to walk due to right knee pepper. After removal of total knee appliance, pain was well managed. Oral intake adequate. Vital signs were stable. His Chauhan was removed at 0400 hours, but states he is leaving the hospital before he voids. OBJECTIVE: GENERAL: Pito Segura is a 42-year-old male. VITAL SIGNS: Height 5 feet 3 inches. Weight is 115 pounds. TPR 97.9, 88, 16. Blood pressure 97/46. HEENT: Negative. NECK: Supple. HEART: Regular rate and rhythm. LUNGS: Clear. ABDOMEN: Dressings dry and intact. Abdominal binder is on. EXTREMITIES: Without peripheral edema. DISPOSITION: Discharged to home. CONDITION: Stable and improving. FOLLOWUP: Followup appointment with Neftali Silvestre MD, on 09/27/2017 at 8:30 a.m. MEDICATIONS: New prescriptions. Percocet 5/325 mg 1 to 2 every 4 hours p.r.n. pain, acarbose 50 mg p.o. t.i.d., Tylenol 650 mg every 6 hours, Ventolin inhaler 2 puffs every 4 hours, Maalox advanced 15 mL every 4 hours p.r.n. heartburn, calcium with vitamin D3 one oral twice daily, vitamin B12 1000 mcg sublingual daily, Cataflam 50 mg oral 3 times a day, Voltaren 1% gel 4 g topical 4 times a day, Lomotil 1 tablet oral q.6 hours, Neurontin 300 mg 3 times a day, Lorazepam 1 mg as directed, multivitamin chewable 1 b.i.d., omeprazole 40 mg twice daily, Zofran ODT 4 mg every 4 hours, Seroquel 12.5 mg oral twice daily, Zoloft 50 mg oral daily, Flomax 0.4 mg at bedtime, vitamin B complex 1 tablet daily. DISCHARGE DIET: Usual diet as tolerated. Drink 8 to 10 glasses of water a day. ACTIVITY: As tolerated. No lifting greater than 10 pounds for 6 weeks. Shower/bathing, may shower. Keep site clean and dry. Wear abdominal binder, pressor dressing over hernia site for 6 weeks. Use incentive spirometer 10 times every hour while awake.
[2017-09-22] MEDS ORDERED: Sertraline 50 MG Tab PO SCH (09:00)
[2017-09-22] MEDS ORDERED: Cyanocobalamin (Vitamin B12) 1,000 MCG Tab SL SCH (09:00)
[2017-09-22] MEDS ORDERED: Calcium Carbonate/Vitamin D3 1500 MG-400 Units Tab PO SCH (09:00)
[2017-09-22] MEDS ORDERED: Non-Formulary Medication 1 Each (Calcium Citrate/Vitamin D3 [Calcium Citrate - Vit D3 Tab] PO SCH (09:00)
[2017-09-22] MEDS ORDERED: Diclofenac Sodium 1% Gel 100 GM Tube TOP SCH (10:00)
[2017-09-22] MEDS ORDERED: Dextrose 5%-Lactated Ringers 1,000 ML IV SCH (12:00)
--- NOTE | 2017-09-25 14:04 | OR ---
DATE OF PROCEDURE: 09/21/2017 PREOPERATIVE DIAGNOSES: 1. Incisional hernia. 2. Status gastrostomy. POSTOPERATIVE DIAGNOSES: 1. Incarcerated incisional hernia. 2. Separate ventral hernia at the gastrostomy tube site. 3. Status gastrostomy. OPERATIVE PROCEDURES: Diagnostic laparoscopy with lysis of adhesions and: 1. Repair of incarcerated incisional hernia with mesh (68376). 2. Repair of separate ventral hernia with mesh ([id number]). 3. Takedown of gastrostomy ([id number]). ANESTHESIA: General. FINANCIAL PROCESSING CLERK: Laurie Funes PA-C. INDICATIONS FOR PROCEDURE: This is a 42-year-old male presenting with an increasingly symptomatic incisional hernia, which is located more or less in the midportion of an upper midline incision. The patient also is status post gastrostomy, which was recently closed down by means of removal of the tube and has healed over. This will be likely in the field of the area where the hernia needs to be repaired and will likewise need to be taken down. A laparoscopic approach will be planned. The patient is aware of possible need to go to open. Potential risks of the procedure per se including bleeding, infection, recurrence of the hernias, injury to the underlying viscera, problems with the mesh becoming infected, as well as remote possibility of cardiopulmonary, septic, or hemorrhagic complications leading to were all discussed, and the patient wishes to proceed. DETAILS OF PROCEDURE: The patient was taken to the operating room and placed in supine position. After general endotracheal anesthesia was induced, a Chauhan catheter was inserted, and the abdomen prepped and draped. With the patient's recent knee surgery, he was left in a supine position. In the right lateral mid abdomen, a transverse incision was made and the peritoneal cavity entered under direct vision with Optiview trocar. Two additional trocars were placed, one in the left lower quadrant, one in the right lower quadrant, and some minor adhesions in the area around the incision were taken down, as well as around the gastrostomy. The patient was noted to have an incarcerated loop of small bowel present within the incisional hernia, and this was dissected free using a combination of blunt and sharp dissection, and once that was completed, the bowel was inspected and no deserosalization was noted. At this point, the stomach was divided just adjacent to the point where the stomach was affixed to the abdominal wall. This was done with a MANOJ purple load and then the tissue around the gastrostomy where it was attached to the abdominal wall was incised with electrocautery, and the stomach was divided away from the abdominal wall. Care was taken to not enter the remaining lumen of the stomach, which at this point was nicely fibrosed off. The stomach specimen was then delivered from the field. The patient was noted to have a defect consistent with a small hernia, now at the gastrostomy takedown site as well. At this point, the area around the primary hernia was mapped out, and a 20.2 cm circular Ventralex hernia mesh was selected. This was soaked in antibiotic-containing saline solution, after which it was rolled up and placed in an intraabdominal location. A stab wound over the center of the hernia was made and the balloon inflation catheter with mesh was then pulled up and the balloon inflated, thus pushing the mesh up against the abdominal wall. This was then fixed circumferentially with 2 rows of absorbable tacking screws. At that point, the balloon was deflated and removed. It was noted that the second hernia was not significantly covered by the present hernia mesh. Given this, a separate small Ventrio ST hernia patch, this being 11 cm in diameter, was selected and had a suture placed on the center of the polypropylene side of the mesh, after it was soaked in antibiotic-containing saline solution. This mesh was likewise pulled up, and then a small stab wound just above the gastrostomy tube site made and suture pulled up, allowing the mesh to be pulled up against the abdominal wall. This likewise was affixed with absorbable tacking screws, and at that point, no further problems noted. Trocars were removed. The fascia at the 12 mm camera port was closed with 0 Vicryl stitch and the skin with 4-0 Vicryl skin stitch. Dressing was applied. The patient was taken to the recovery room in satisfactory condition. Physician assistant kitchen manager, Laurie Funes played an essential role in assisting in this case, helping to position the patient, retract structures as needed, as well as suturing and cutting sutures when indicated. Her presence improved the patient's safety and decreased operative time. Neftali Silvestre MD /[id number]
== END 2017-09-22 08:45 | disposition home or self-care (01) | DRG 327 ==
LOC: JP.SDS 08:45 → JP.2SS 08:45 → EDSTATUS 09:30
PROVIDERS: ADMIT Surgery; ATTEND Surgery
PROC: 0WUF0JZ Supplement Abdominal Wall with Synthetic Substitute, Open Approach (ICD-10-PCS; principal; 2017-09-21)
PROC: 0DP60UZ Removal of Feeding Device from Stomach, Open Approach (ICD-10-PCS; 2017-09-21)
PROC: 0WUF0JZ Supplement Abdominal Wall with Synthetic Substitute, Open Approach (ICD-10-PCS; 2017-09-21)
PROC: 0DNW0ZZ Release Peritoneum, Open Approach (ICD-10-PCS; 2017-09-21)
DX: K43.0 Incisional hernia with obstruction, without gangrene (principal); K91.2 Postsurgical malabsorption, not elsewhere classified; Z43.1 Encounter for attention to gastrostomy; K43.9 Ventral hernia without obstruction or gangrene; J45.909 Unspecified asthma, uncomplicated; F17.210 Nicotine dependence, cigarettes, uncomplicated; E53.8 Deficiency of other specified B group vitamins; Z87.820 Personal history of traumatic brain injury; Z90.3 Acquired absence of stomach [part of]; Z91.048 Other nonmedicinal substance allergy status; F80.9 Developmental disorder of speech and language, unspecified; K66.0 Peritoneal adhesions (postprocedural) (postinfection)
CPT/HCPCS: 36415; 80053; 83735; 84100; 85027; 88302; 88305; 94640; 94762; A9270-GY; C1781; J0171; J0330; J0690; J1100; J1170; J1885; J2001; J2185; J2405; J2704; J2710; J2795; J3010; J7030; J7040; J7042; J7050; J7120; J7620

== ENCOUNTER 2019-06-12 13:58 | Emergency (ER) | payer MEDICAID ==
[2019-06-12 14:25] VITALS: BP 114/72; PULSE 74
[2019-06-12] MEDS ORDERED: Ketorolac 60 MG/2 ML SDV IM ONE (14:41)
--- NOTE | 2019-06-12 14:43 | EDM.PDOC ---
ED HPI GENERAL MEDICAL PROBLEM - General Chief Complaint: Lower Extremity Injury/Pain Stated Complaint: SURGERY COMPLICATIONS ON LEFT KNEE Time Seen by Provider: 06/12/19 14:41 Source of Information: Reports: Patient, Family, RN Notes Reviewed History Limitations: Reports: No Limitations - History of Present Illness INITIAL COMMENTS - FREE TEXT/NARRATIVE: 43-year-old gentleman presents emergency department today following a fall at home this happened a couple days ago he had a twisting injury to his left knee he does have knee replacement, Now he is experiencing pain and difficulty to bear weight Left Knee Pain Score (Numeric/FACES): 9 - Related Data Allergies Allergy/AdvReac Type Severity Reaction Status Date / Time adhesive tape Allergy Rash Verified 09/21/17 09:35 Home Meds: Home Meds Albuterol [Ventolin HFA] 2 puff PO Q4HR PRN 04/07/16 [History] Vitamin B Complex [B Complex] 1 tab PO DAILY 05/13/16 [History] Omeprazole 40 mg PO BID 06/12/16 [History] Tamsulosin [Flomax] 0.4 mg PO BEDTIME 06/12/16 [History] Cyanocobalamin (Vitamin B12) [Vitamin B12] 1,000 mcg SL DAILY 09/07/16 [History] Diclofenac Potassium [Cataflam] 50 mg PO TID 09/07/16 [History] Multivitamins with Iron [Chewable-Loki with Iron] 1 each PO BID 11/07/16 [ History] Acarbose 50 mg PO TID 11/08/16 [History] LORazepam 1 mg GTUBE ASDIRECTED 11/17/16 [History] oxyCODONE HCl/Acetaminophen [oxyCODONE-Acetaminophen 5-325] 1 - 2 tab PO Q4H PRN 11/17/16 [History] Calcium Citrate/Vitamin D3 [Calcium Citrate - Vit D3 Tab] 2 tab PO BID 11/18/16 [History] Diclofenac Sodium [Voltaren 1% Gel] 4 gr TOP QID 11/18/16 [History] Diphenoxylate HCl/Atropine [Lomotil] 1 tab PO Q6H PRN 11/18/16 [History] Acetaminophen [Tylenol] 650 mg PO Q6H PRN 09/20/17 [History] Alum Hydrox/Mag Hydrox/Simeth [Maalox Advanced] 15 ml PO Q4H PRN 09/20/17 [ History] Calcium Carbonate/Vitamin D3 [Calcium 500 mg Chewable Tablet] 1 each PO BID [History] Gabapentin [Neurontin] 300 mg PO TID 09/20/17 [History] Ondansetron [Zofran ODT] 4 mg PO Q4H PRN 09/20/17 [History] QUEtiapine [SEROquel] 12.5 mg PO BID 09/20/17 [History] Sertraline [Zoloft] 50 mg PO DAILY 09/20/17 [History] Acetaminophen/oxyCODONE [Percocet 325-5 MG] 1 - 2 tab PO Q4H PRN #30 tablet 11/08 [Rx] Ketorolac [Toradol] 10 mg PO Q6H PRN #20 tab 06/12/19 [Rx] Past Medical History HEENT History: Reports: Impaired Vision Other HEENT History: Dental caries; wears glasses Respiratory History: Reports: Asthma, Bronchitis, Recurrent, Sleep Apnea Gastrointestinal History: Reports: Chronic Diarrhea, Gastritis, GERD, Hiatal Hernia Genitourinary History: Reports: Renal Calculus Musculoskeletal History: Reports: Arthritis, Back Pain, Chronic, Fracture, Fibromyalgia Neurological History: Reports: Brain Injury, Concussion, Head Trauma, Migraines , Vertigo Psychiatric History: Reports: ADHD, Anxiety, Depression, Mood Swings, Panic Attack, Suicide Attempt, Suicidal Ideation Endocrine/Metabolic History: Reports: Vitamin D Deficiency, Other (See Below) Other Endocrine/Metabolic History: hypoglycemic Hematologic History: Reports: B12 Deficiency, Iron Deficiency Dermatologic History: Reports: Other (See Below) Other Dermatologic History: small sore on both legs - Infectious Disease History Infectious Disease History: Reports: Chicken Pox, Measles, Mumps - Past Surgical History Head Surgeries/Procedures: Reports: None, Other (See Below) HEENT Surgical History: Reports: Eye Surgery GI Surgical History: Reports: Bariatric Procedure, Esophageal Dilatation, David Fundoplication, Other (See Below) Musculoskeletal Surgical History: Reports: Knee Replacement Social & Family History - Family History Respiratory: Reports: Asthma : Reports: Renal Disease/Insufficiency Musculoskeletal: Reports: Arthritis Neurological: Reports: Other (See Below) Other Neurological Family History: MS Endocrine/Metabolic: Reports: Diabetes, Type I Oncologic: Reports: Colon, Lung, Metastatic Other Oncologic Family History: Throat - Tobacco Use Smoking Status *Q: Heavy Tobacco Smoker Years of Tobacco use: 30 Packs/Tins Daily: 0.5 - Caffeine Use Caffeine Use: Reports: Coffee, Soda Other Caffeine Use: 2 cups day - Recreational Drug Use Recreational Drug Use: No - Living Situation & Occupation Living situation: Reports: with Significant Other Occupation: Employed Review of Systems - Review of Systems Review Of Systems: See Below Musculoskeletal: Reports: Joint Pain (Knee pain) ED EXAM, GENERAL - Physical Exam Exam: See Below Free Text/Narrative:: Examination of the left knee I don't appreciate any erythema or edema he does have a surgical wound which is clean dry and intact he has pain with any amount of manipulation of the knee Exam Limited By: No Limitations General Appearance: Alert, WD/WN, No Apparent Distress Course - Vital Signs Last Recorded V/S: Last Vital Signs Temp 96.8 F 06/12/19 14:27 Pulse 74 06/12/19 14:27 Resp 18 06/12/19 14:27 BP 114/72 06/12/19 14:27 Pulse Ox 99 06/12/19 14:27 - Orders/Labs/Meds Meds: Medications Discontinued Medications Generic Name Dose Route Start Last Admin Trade Name Freq PRN Reason Stop Dose Admin Ketorolac Tromethamine 60 mg 06/12/19 14:41 06/12/19 14:52 Toradol IM 06/12/19 14:42 60 mg ONETIME ONE Administration Departure - Departure Time of Disposition: 16:04 Disposition: Home, Self-Care 01 Condition: Fair Clinical Impression: Left knee pain Qualifiers: Chronicity: acute Qualified Code(s): M25.562 - Pain in left knee - Discharge Information Prescriptions: Ketorolac [Toradol] 10 mg PO Q6H PRN #20 tab PRN Reason: Pain Referrals: Ruthy Cedillo MD [Primary Care Provider] - Forms: ED Department Discharge Additional Instructions: Try the Toradol or ketorolac as needed for pain control one tablet every 6 hours as needed, do not take any other NSAIDs or medications in this class while you're taking the Toradol, Please followup with your primary care provider in [days] days if not better, please call return to the emergency department with worsening of symptoms. - Assessment/Plan Plan: Assessment Acuity = acute Site and laterality = left knee pain complicated patient with history of knee replacement Etiology = secondary to twisting injury Manifestations = none Location of injury = Home Lab values = x-ray reveals no acute process Plan He had good relief with the Toradol injection provided discharge home with Toradol 10 mg by mouth every 6 hours when necessary total #20 he will not take any other NSAIDs at the same time follow-up primary care 3-5 days if no improvement This note was dictated using [employer] voice recognition software please call with any questions on syntax or grammar.
--- NOTE | 2019-06-12 15:33 | CRLCR ---
Indication: Twisted, pain Technique: Three views of the left knee Comparison: None Findings: Total knee arthroplasty is in place. There is no evidence of hardware loosening. No fracture is demonstrated. There is suggestion of a small knee joint effusion. The surrounding soft tissues are unremarkable. Impression: 1. No fracture or dislocation. 2. Total knee arthroplasty without evidence of hardware loosening. Dictated by Patito Coppola MD @ Jun 12 2019 3:31PM Signed by Dr. Patito Coppola @ Jun 12 2019 3:31PM
== END 2019-06-12 16:11 | disposition home or self-care (01) ==
LOC: JP.ED 13:58
DX: M25.562 Pain in left knee (principal); Z96.652 Presence of left artificial knee joint; F17.210 Nicotine dependence, cigarettes, uncomplicated; Z79.899 Other long term (current) drug therapy; K21.9 Gastro-esophageal reflux disease without esophagitis; F41.9 Anxiety disorder, unspecified; F32.9 Major depressive disorder, single episode, unspecified; X50.1XXA Overexertion from prolonged static or awkward postures, initial encounter
CPT/HCPCS: 73562; 96372; 99283; J1885

== ENCOUNTER 2021-01-09 14:31 | Emergency (ER) | payer MEDICAID ==
[2021-01-09 14:50] VITALS: BP 124/88; PULSE 95
[2021-01-09] MEDS ORDERED: Acetaminophen/HYDROcodone 325-5 MG Tab PO ONE (15:27)
[2021-01-09] MEDS ORDERED: Lidocaine 5% 700 MG Patch TOP ONE (15:27)
--- NOTE | 2021-01-09 15:34 | EDM.PDOC ---
ED HPI GENERAL MEDICAL PROBLEM - General Chief Complaint: Back Pain or Injury Stated Complaint: UPPER RT SIDE BACK PAIN Time Seen by Provider: 01/09/21 15:20 Source of Information: Reports: Patient, Old Records, RN History Limitations: Reports: No Limitations - History of Present Illness INITIAL COMMENTS - FREE TEXT/NARRATIVE: 45 yo male here with pain just beneath his R scapula after lifting a heavy object at home today. Has sharp pain with breathing. Has had this before. Onset: Today, Sudden Onset Date: 01/09/21 Duration: Minutes:, Constant Location: Reports: Chest (Posterior right) Quality: Reports: Sharp, Stabbing Severity: Moderate Improves with: Reports: Rest Worsens with: Reports: Breathing, Movement Context: Reports: Other (see HPI) Associated Symptoms: Reports: No Other Symptoms Treatments [employer]: Reports: Other (see below) (none) - Related Data Allergies Allergy/AdvReac Type Severity Reaction Status Date / Time adhesive tape Allergy Rash Verified 01/09/21 14:53 Home Meds: Home Meds Albuterol [Ventolin HFA] 2 puff PO Q4HR PRN 04/07/16 [History] Vitamin B Complex [B Complex] 1 tab PO DAILY 05/13/16 [History] Omeprazole 40 mg PO BID 06/12/16 [History] Tamsulosin [Flomax] 0.4 mg PO BEDTIME 06/12/16 [History] Cyanocobalamin (Vitamin B12) [Vitamin B12] 1,000 mcg SL DAILY 09/07/16 [History] Diclofenac Potassium [Cataflam] 50 mg PO TID 09/07/16 [History] Multivitamin with Iron [Chewable-Loki with Iron] 1 each PO BID 11/07/16 [History] Acarbose 50 mg PO TID 11/08/16 [History] LORazepam 1 mg GTUBE ASDIRECTED 11/17/16 [History] Calcium Citrate/Vitamin D3 [Calcium Citrate - Vit D3 Tab] 2 tab PO BID 11/18/16 [History] Diclofenac Sodium [Voltaren 1% Gel] 4 gr TOP QID 11/18/16 [History] Diphenoxylate HCl/Atropine [Lomotil] 1 tab PO Q6H PRN 11/18/16 [History] Calcium Carbonate/Vitamin D3 [Calcium 500 mg Chewable Tablet] 1 each PO BID 09/20/17 [History] Gabapentin [Neurontin] 300 mg PO TID 09/20/17 [History] QUEtiapine [SEROquel] 12.5 mg PO BID 09/20/17 [History] Sertraline [Zoloft] 50 mg PO DAILY 09/20/17 [History] Acetaminophen/oxyCODONE [Percocet 325-5 MG] 1 - 2 tab PO Q4H PRN #30 tablet 09/22/17 [Rx] Ketorolac [Toradol] 10 mg PO Q6H PRN #20 tab 06/12/19 [Rx] Acetaminophen/HYDROcodone [[place] 325-5 MG] 1 - 2 tab PO Q6H PRN #15 tab 01/09/21 [Rx] Lidocaine 5% [Lidoderm 5%] 1 patch TOP DAILY #7 patch 01/09/21 [Rx] Past Medical History HEENT History: Reports: Impaired Vision Other HEENT History: Dental caries; wears glasses Respiratory History: Reports: Asthma, Bronchitis, Recurrent, Sleep Apnea Gastrointestinal History: Reports: Chronic Diarrhea, Gastritis, GERD, Hiatal Hernia Genitourinary History: Reports: Renal Calculus Musculoskeletal History: Reports: Arthritis, Back Pain, Chronic, Fracture, Fibromyalgia Neurological History: Reports: Brain Injury, Concussion, Head Trauma, Migraines, Vertigo Psychiatric History: Reports: ADHD, Anxiety, Depression, Mood Swings, Panic Attack, Suicide Attempt, Suicidal Ideation Endocrine/Metabolic History: Reports: Vitamin D Deficiency, Other (See Below) Other Endocrine/Metabolic History: hypoglycemic Hematologic History: Reports: B12 Deficiency, Iron Deficiency Dermatologic History: Reports: Other (See Below) Other Dermatologic History: small sore on both legs - Infectious Disease History Infectious Disease History: Reports: Chicken Pox, Measles, Mumps - Past Surgical History Head Surgeries/Procedures: Reports: None, Other (See Below) HEENT Surgical History: Reports: Eye Surgery Respiratory Surgical History: Reports: None GI Surgical History: Reports: Bariatric Procedure, Esophageal Dilatation, Isabel Fundoplication, Other (See Below) Other GI Surgeries/Procedures: Repair of isabel recent. gastrectomy april 2016. G-tube placed September 2016 Abdomenal surgery in Oct or 2016 Male Surgical History: Reports: None Endocrine Surgical History: Reports: None Neurological Surgical History: Reports: None Musculoskeletal Surgical History: Reports: Knee Replacement Other Musculoskeletal Surgeries/Procedures:: right knee replacement 07/2015 Dermatological Surgical History: Reports: None Social & Family History - Family History Respiratory: Reports: Asthma : Reports: Renal Disease/Insufficiency Musculoskeletal: Reports: Arthritis Neurological: Reports: Other (See Below) Other Neurological Family History: MS Endocrine/Metabolic: Reports: Diabetes, Type I Oncologic: Reports: Colon, Lung, Metastatic Other Oncologic Family History: Throat - Tobacco Use Tobacco Use Status *Q: Current Every Day Tobacco User Years of Tobacco use: 20 Packs/Tins Daily: 0.5 - Caffeine Use Caffeine Use: Reports: Coffee, Soda Other Caffeine Use: 2 cups day - Recreational Drug Use Recreational Drug Type: Reports: Marijuana/Hashish - Living Situation & Occupation Living situation: Reports: with Significant Other Occupation: Employed ED ROS GENERAL - Review of Systems Review Of Systems: See Below Constitutional: Reports: No Symptoms HEENT: Reports: No Symptoms Respiratory: Reports: Pleuritic Chest Pain Cardiovascular: Reports: No Symptoms GI/Abdominal: Reports: No Symptoms Musculoskeletal: Reports: No Symptoms Skin: Reports: No Symptoms Neurological: Reports: No Symptoms ED EXAM, UPPER BACK/NECK PAIN - Physical Exam Exam: See Below Exam Limited By: No Limitations General Appearance: Alert, WD/WN, No Apparent Distress Cardiovascular/Respiratory: Regular Rate, Rhythm, No M/R/G, Normal Breath Sounds, No Respiratory Distress. No: Rales, Rhonchi, Accessory Muscle uUe, Wheezing Back Exam: Normal Inspection, Other (rib tenderness just below the R scapula). No: CVA Tenderness (R), CVA Tenderness (L) Extremities: Normal Inspection, Normal Range of Motion, Non-Tender, No Pedal Edema Neurologic: inspector structural bonding II-XII nml As Tested, No Motor/Sensory Deficits, Alert, Normal Mood/Affect, Oriented x 3 Psychiatric: Normal Affect, Normal Mood Skin Exam: Normal Color, Warm/Dry Course - Vital Signs Last Recorded V/S: Last Vital Signs Temp 36.8 C 01/09/21 15:03 Pulse 95 01/09/21 15:03 Resp 17 01/09/21 15:03 BP 124/88 01/09/21 15:03 Pulse Ox 96 01/09/21 15:03 - Orders/Labs/Meds Orders: Active Orders 24 hr Category Date Time Status UA W/MICROSCOPIC [URIN] Stat Lab 01/09/21 15:23 Ordered Meds: Medications Discontinued Medications Generic Name Dose Route Start Last Admin Trade Name Freq PRN Reason Stop Dose Admin Hydrocodone Bitart/Acetaminophen 1 tab 01/09/21 15:27 Acetaminophen/Hydrocodone 325-5 Mg Tab PO 01/09/21 15:28 ONETIME ONE Lidocaine 700 mg 01/09/21 15:27 Lidocaine 5% 700 Mg Patch TOP 01/09/21 15:28 ONETIME ONE Departure - Departure Time of Disposition: 15:32 Disposition: Home, Self-Care 01 Condition: Fair Clinical Impression: Rib pain on right side - Discharge Information *PRESCRIPTION DRUG MONITORING PROGRAM REVIEWED*: No *COPY OF PRESCRIPTION DRUG MONITORING REPORT IN PATIENT MELANY: No Prescriptions: Acetaminophen/HYDROcodone [[place] 325-5 MG] 1 - 2 tab PO Q6H PRN #15 tab PRN Reason: Pain Referrals: PCP,None [Primary Care Provider] - Additional Instructions: Use a new Lidoderm patch over the area of pain daily. Take ibuprofen 400 mg every 6 hrs with food. Add either acetaminophen OR [place] for added pain relief. Recheck with your provider early in this next week. Sepsis Event Note (ED) - Evaluation Sepsis Screening Result: No Definite Risk - Focused Exam Vital Signs: Vital Signs Temp Pulse Resp BP Pulse Ox 01/09/21 15:03 36.8 C 95 17 124/88 96 01/09/21 14:49 36.8 C 95 17 124/88 96 - My Orders Last 24 Hours: My Active Orders 01/09/21 15:23 UA W/MICROSCOPIC [URIN] Stat - Assessment/Plan Last 24 Hours: My Active Orders 01/09/21 15:23 UA W/MICROSCOPIC [URIN] Stat
== END 2021-01-09 15:54 | disposition home or self-care (01) ==
LOC: JP.ED 14:31
DX: R07.81 Pleurodynia (principal); J45.909 Unspecified asthma, uncomplicated; K21.9 Gastro-esophageal reflux disease without esophagitis; Z72.0 Tobacco use; Z91.048 Other nonmedicinal substance allergy status
CPT/HCPCS: 99283; A9270-GY

== ENCOUNTER 2021-05-15 11:09 | Emergency (ER) | payer MEDICAID ==
[2021-05-15 11:23] VITALS: BP 107/69; PULSE 65
[2021-05-15] MEDS ORDERED: Ketorolac 30 MG/ML SDV IM ONE (11:57)
[2021-05-15] MEDS ORDERED: Bacitracin Oint 1 GM U/D Packet TOP ONE (11:57)
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
== END 2021-05-15 12:18 | disposition home or self-care (01) ==
LOC: JP.ED 11:09
DX: T22.231A Burn of second degree of right upper arm, initial encounter (principal); T23.171A Burn of first degree of right wrist, initial encounter; K21.9 Gastro-esophageal reflux disease without esophagitis; Z91.048 Other nonmedicinal substance allergy status; Z79.899 Other long term (current) drug therapy; Z72.0 Tobacco use
CPT/HCPCS: 16020; 96372; 99283; J1885

== ENCOUNTER 2022-02-13 12:28 | Emergency (ER) | payer MEDICAID ==
[2022-02-13 13:26] VITALS: BP 116/71; PULSE 60
== END 2022-02-13 15:50 | disposition home or self-care (01) ==
LOC: JP.ED 12:28
DX: M21.332 Wrist drop, left wrist (principal); G56.32 Lesion of radial nerve, left upper limb; G89.29 Other chronic pain; M25.512 Pain in left shoulder; M25.522 Pain in left elbow; K21.9 Gastro-esophageal reflux disease without esophagitis; Z91.048 Other nonmedicinal substance allergy status; Z79.899 Other long term (current) drug therapy; Z72.0 Tobacco use
CPT/HCPCS: 72040; 72040-26; 73030-26-LT; 73030-LT; 73080-26-LT; 73080-LT; 99282; 99283-25

== ENCOUNTER 2022-06-28 21:34 | Emergency (ER) | payer MEDICAID ==
[2022-06-28 22:07] VITALS: BP 121/73; PULSE 68
[2022-06-28] MEDS ORDERED: Ketorolac 30 MG/ML SDV IM ONE (22:18)
== END 2022-06-28 23:04 | disposition home or self-care (01) ==
LOC: JP.ED 21:34
DX: S92.414A Nondisplaced fracture of proximal phalanx of right great toe, initial encounter for closed fracture (principal); F17.210 Nicotine dependence, cigarettes, uncomplicated; Z91.048 Other nonmedicinal substance allergy status; Z79.899 Other long term (current) drug therapy; Z86.16 Personal history of COVID-19; X50.0XXA Overexertion from strenuous movement or load, initial encounter
CPT/HCPCS: 73630; 96372; 99283; J1885